=== PATIENT | male | born 1975 | race Caucasian/White ===

== ENCOUNTER 2018-03-17 18:26 | Inpatient (IN) | payer BC ==
--- NOTE | 2018-03-17 18:59 | ED ---
General Adult HPI - General Chief complaint: Abdominal Pain Stated complaint: Abdominal pain Time Seen by Provider: 03/17/18 18:46 Source: patient, EMS, RN notes reviewed Mode of arrival: EMS Limitations: no limitations - History of Present Illness Initial comments: Patient is a pleasant 42-year-old male presenting to the emergency Department with complaints of abdominal discomfort. Onset of symptoms was yesterday. Symptoms then improved last night. Discomfort started again this morning and is progressively worsened since that time. Patient admits that his abdomen does appear distended to them. Discomfort is mostly right lower abdomen. Patient did have some nausea earlier however this is resolved. No vomiting. patient diarrhea. No history of similar symptoms previously. Patient was seen at [facility] and transferred for surgical care. Computed tomography scan there showed significant inflammatory changes in the sigmoid:. 1.7 cm developing abscess suspected. Scattered locules of free air demonstrated compatible with perforation. Appendix is not visualized. - Related Data Home Medications Medication Instructions Recorded Confirmed Ibuprofen [Advil] 200 mg PO Q8HR PRN 03/17/18 03/17/18 Allergies Allergy/AdvReac Type Severity Reaction Status Date / Time No Known Allergies Allergy Verified 03/17/18 18:58 Review of Systems ROS Statement: Those systems with pertinent positive or pertinent negative responses have been documented in the HPI. ROS Other: All systems not noted in ROS Statement are negative. Constitutional: Reports: fever Eyes: Denies: eye pain ENT: Denies: ear pain Respiratory: Denies: cough, dyspnea Cardiovascular: Denies: chest pain Endocrine: Denies: fatigue Gastrointestinal: Reports: abdominal pain. Denies: vomiting, diarrhea, constipation Genitourinary: Denies: dysuria Musculoskeletal: Denies: back pain Skin: Denies: rash Neurological: Denies: weakness Past Medical History Past Medical History: No Reported History History of Any Multi-Drug Resistant Organisms: None Reported Additional Past Surgical History / Comment(s): Colonoscopy Past Psychological History: No Psychological Hx Reported Smoking Status: Current every day smoker Past Alcohol Use History: None Reported Past Drug Use History: None Reported General Exam Limitations: no limitations General appearance: alert, in no apparent distress Head exam: Present: atraumatic Eye exam: Present: normal appearance Neck exam: Present: normal inspection Respiratory exam: Present: normal lung sounds bilaterally Cardiovascular Exam: Present: regular rate, normal rhythm GI/Abdominal exam: Present: soft, distended, tenderness (Moderate to severe tenderness right lower quadrant and suprapubic region), guarding, normal bowel sounds. Absent: rebound, pulsatile mass Extremities exam: Present: normal inspection Neurological exam: Present: alert Psychiatric exam: Present: normal affect, normal mood Skin exam: Present: normal color Course Vital Signs 03/17/18 18:48 Temperature 99.4 F Pulse Rate 100 Respiratory 18 Rate Blood Pressure 132/62 O2 Sat by Pulse 95 Oximetry - Reevaluation(s) Reevaluation #1: 03/17/18 18:56 Patient met sepsis criteria prior to arrival. Patient appears to have received Rocephin and Flagyl prior to arrival as well as acetaminophen and fluid bolus. It does appear to be a 2000 mL of fluid bolus however this is not completely clear. Blood culture and lactic acid have been ordered. 03/17/18 19:10 Case was discussed in detail with Dr. Cobb, including CT results and patient evaluation, who does recommend admitting patient to him. He will review computed tomography scan and determine further treatment. He states to continue Rocephin and Flagyl. Disposition Clinical Impression: Perforated viscus Disposition: ADMITTED IP TO THIS HOSP Is patient prescribed a controlled substance at d/c from ED?: No Referrals: Anson Last DO [Primary Care Provider] - 1-2 days Decision Time: 19:11
[2018-03-17] MEDS ORDERED: SODIUM CHLORIDE 0.9% 500 ML IV STA (19:07)
[2018-03-17] MEDS ORDERED: NALOXONE 0.4 MG/ML 1 ML VIAL IV PRN (19:11)
[2018-03-17] MEDS ORDERED: PANTOPRAZOLE 40 MG/10 ML VIAL IV STA (19:23)
[2018-03-17 20:45] LABS: INR 1.1 (<1.2); Prothrombin Time 10.3 sec (9.0-12.0)
[2018-03-17 20:47] LABS: Basophils % (A) 0 %; Eosinophils # (A) 0.1 k/uL (0-0.7); Eosinophils % (A) 1 %; HGB 13.5 gm/dL (13.0-17.5); Lymphocytes # (A) 1.1 k/uL (1.0-4.8); Lymphocytes % (A) 8 %; MCH 29.2 pg (25.0-35.0); MCHC 32.1 g/dL (31.0-37.0); MCV 90.8 fL (80.0-100.0); Mean Platelet Volume 7.2; Monocytes # (A) 0.4 k/uL (0-1.0); Monocytes % (A) 3 %; Neutrophils # (A) 11.6 k/uL (1.3-7.7); Neutrophils % (A) 87 %; Platelet Count 293 k/uL (150-450); RBC 4.62 m/uL (4.30-5.90); RDW 12.6 % (11.5-15.5); WBC 13.3 k/uL (3.8-10.6)
[2018-03-17 20:51] LABS: ALT 29 U/L (21-72); AST 33 U/L (17-59); Albumin 3.3 g/dL (3.5-5.0); Alkaline Phosphatase 81 U/L (38-126); Anion Gap 9 mmol/L; Blood Urea Nitrogen 13 mg/dL (9-20); Carbon Dioxide 24 mmol/L (22-30); Chloride 106 mmol/L (98-107); Glucose 88 mg/dL (74-99); Potassium 4.5 mmol/L (3.5-5.1); Sodium 139 mmol/L (137-145); Total Bilirubin 0.8 mg/dL (0.2-1.3); Total Protein 6.3 g/dL (6.3-8.2)
[2018-03-17] MEDS: SODIUM CHLORIDE 0.9% 1,000 ML IV SCH (21:03)
--- NOTE | 2018-03-17 21:18 | P.GSHP ---
History of Present Illness H&P Date: 03/17/18 Mr. Sierra s a pleasant 42-year-old gentleman that presented from a outside facility for surgical evaluation. He states that he has had abdominal pain in the bilateral lower quadrants for approximately 1 week. He states that the pain would relieve itself throughout the week and then return. He states that over the past 24 hours the pain has increased and has not dissipated. He states that most of the pain is currently in the right lower quadrant and suprapubic region. He complains of some episodes of nausea and diarrhea. He denies any emesis episodes. He denies any loss of appetite. He is uncertain of any febrile episodes. He denies ever having any previous abdominal surgery. He states that he did have a colonoscopy approximately 6 or 7 years ago due to GI bleed. He states that nothing of significance was found at that time. On workup at the outside facility, CT of his abdomen and pelvis was performed. They did mention that there was localized air around the sigmoid colon with inflammation of the sigmoid colon which seemed to signify diverticulitis. There is also concern for a possible developing abscess. There is no apparent appendicitis, however appendix is not visualized on the CT. - Review of Systems All systems: negative Past Medical History Past Medical History: No Reported History History of Any Multi-Drug Resistant Organisms: None Reported Additional Past Surgical History / Comment(s): Colonoscopy Past Psychological History: No Psychological Hx Reported Smoking Status: Current every day smoker Past Alcohol Use History: None Reported Past Drug Use History: None Reported Medications and Allergies Home Medications Medication Instructions Recorded Confirmed Type Ibuprofen [Advil] 200 mg PO Q8HR PRN 03/17/18 03/17/18 History Allergies Allergy/AdvReac Type Severity Reaction Status Date / Time No Known Allergies Allergy Verified 03/17/18 18:58 Surgical - Exam Osteopathic Statement: *. No significant issues noted on an osteopathic structural exam other than those noted in the History and Physical/Consult. Vital Signs Temp Pulse Resp BP Pulse Ox 99.4 F 100 18 132/62 95 03/17/18 18:48 03/17/18 18:48 03/17/18 18:48 03/17/18 18:48 03/17/18 18:48 - General well nourished, no distress - Eyes normal ocular movement - ENT normal nares, normal mucosa, no hearing loss - Neck no masses, trachea midline - Respiratory no difficulty with respiration - Abdomen soft, mild distention, tenderness to palpation in the right lower quadrant localized to one area, nontender to percussion, no rebound, no guarding, no skin changes - Neurologic normal coordination, normal sensation - Psychiatric oriented to time, oriented to person, oriented to place, speech is normal Results - Labs 03/17/18 19:29 03/17/18 19:29 Abnormal Lab Results - Last 24 Hours (Table) 03/17/18 03/17/18 Range/Units 19:29 19:29 WBC 13.3 H (3.8-10.6) k/uL Neutrophils # 11.6 H (1.3-7.7) k/uL Calcium 8.0 L (8.4-10.2) mg/dL Albumin 3.3 L (3.5-5.0) g/dL Diabetes panel 03/17/18 Range/Units 19:29 Sodium 139 (137-145) mmol/L Potassium 4.5 (3.5-5.1) mmol/L Chloride 106 (98-107) mmol/L Carbon Dioxide 24 (22-30) mmol/L BUN 13 (9-20) mg/dL Creatinine 0.87 (0.66-1.25) mg/dL Glucose 88 (74-99) mg/dL Calcium 8.0 L (8.4-10.2) mg/dL AST 33 (17-59) U/L ALT 29 (21-72) U/L Alkaline Phosphatase 81 (38-126) U/L Total Protein 6.3 (6.3-8.2) g/dL Albumin 3.3 L (3.5-5.0) g/dL Calcium panel 03/17/18 Range/Units 19:29 Calcium 8.0 L (8.4-10.2) mg/dL Albumin 3.3 L (3.5-5.0) g/dL Pituitary panel 03/17/18 Range/Units 19:29 Sodium 139 (137-145) mmol/L Potassium 4.5 (3.5-5.1) mmol/L Chloride 106 (98-107) mmol/L Carbon Dioxide 24 (22-30) mmol/L BUN 13 (9-20) mg/dL Creatinine 0.87 (0.66-1.25) mg/dL Glucose 88 (74-99) mg/dL Calcium 8.0 L (8.4-10.2) mg/dL Adrenal panel 03/17/18 Range/Units 19:29 Sodium 139 (137-145) mmol/L Potassium 4.5 (3.5-5.1) mmol/L Chloride 106 (98-107) mmol/L Carbon Dioxide 24 (22-30) mmol/L BUN 13 (9-20) mg/dL Creatinine 0.87 (0.66-1.25) mg/dL Glucose 88 (74-99) mg/dL Calcium 8.0 L (8.4-10.2) mg/dL Total Bilirubin 0.8 (0.2-1.3) mg/dL AST 33 (17-59) U/L ALT 29 (21-72) U/L Alkaline Phosphatase 81 (38-126) U/L Total Protein 6.3 (6.3-8.2) g/dL Albumin 3.3 L (3.5-5.0) g/dL - Imaging CT scan - abdomen: report reviewed, image reviewed (There does appear to be inflammatory changes around the sigmoid colon with some localized minimal perforation) CT scan - pelvis: report reviewed, image reviewed Assessment and Plan (1) Diverticulitis large intestine Narrative/Plan: 42-year-old male with likely diverticulitis, with minimal localized perforation - I discussed the case in depth with the patient. Currently, the patient has responded to IV fluids and antibiotics with resolution of febrile episode that was documented at his previous hospital. Tachycardia has resolved. The patient does not currently have any peritoneal signs. This appears to be a process that has been ongoing for the last week and has worsened. I did discuss with the patient both medical and surgical options at this point. Due to no current signs of peritonitis, we will attempt care with medical management with antibiotics, nothing by mouth and IV fluids. We will keep a very low threshold for any surgical intervention if he continues to have pain or have worsening pain or any additional signs of sepsis. The patient is agreeable to this plan. I will also involve interventional radiology for evaluation on possible developing abscess. - Further recommendations based on patient's progress during admission Current Visit: Yes Status: Acute Code(s): K57.32 - DVTRCLI OF LG INT W/O PERFORATION OR ABSCESS W/O BLEEDING SNOMED Code(s): 5844320
[2018-03-18] MEDS ORDERED: metroNIDAZOLE-NS PMX 500 MG in SALINE 1 100ML.BAG IVPB SCH
[2018-03-18] MEDS: SODIUM CHLORIDE 0.9% 500 ML IV SCH (00:15)
[2018-03-18] MEDS: metroNIDAZOLE-NS PMX 500 MG in SALINE 1 100ML.BAG IVPB SCH ×3 (00:17→16:37)
[2018-03-18 00:52] LABS: Appearance,Urine Clear (Clear); Bilirubin,Urine Negative (Negative); Blood,Urine Trace (Negative); Color,Urine Yellow; Glucose,Urine (UA) Negative (Negative); Ketones,Urine Negative (Negative); Leukocyte Esterase,Urine Negative (Negative); Nitrite,Urine Negative (Negative); PH, Urine 6.5 (5.0-8.0); Protein,Urine Trace (Negative); RBC,Urine 5 /hpf (0-5); Specific Gravity,Urine 1.039 (1.001-1.035); Squamous Epithelial Cell,Urine <1 /hpf (0-4); WBC,Urine 1 /hpf (0-5)
[2018-03-18] MEDS: HYDROmorphone 1 MG/ML 1 ML SYRINGE IVP PRN ×3 (04:24→17:30)
[2018-03-18 07:35] LABS: Basophils % (A) 0 %; Eosinophils % (A) 0 %; HCT 40.1 % (39.0-53.0); HGB 12.6 gm/dL (13.0-17.5); Lymphocytes # (A) 1.2 k/uL (1.0-4.8); Lymphocytes % (A) 8 %; MCH 29.1 pg (25.0-35.0); MCHC 31.4 g/dL (31.0-37.0); MCV 92.6 fL (80.0-100.0); Mean Platelet Volume 6.7; Monocytes # (A) 0.4 k/uL (0-1.0); Monocytes % (A) 3 %; Neutrophils # (A) 13.5 k/uL (1.3-7.7); Neutrophils % (A) 89 %; Platelet Count 286 k/uL (150-450); RBC 4.33 m/uL (4.30-5.90); RDW 12.5 % (11.5-15.5); WBC 15.2 k/uL (3.8-10.6)
[2018-03-18 07:46] LABS: Anion Gap 7 mmol/L; Blood Urea Nitrogen 12 mg/dL (9-20); Calcium 8.2 mg/dL (8.4-10.2); Carbon Dioxide 26 mmol/L (22-30); Chloride 106 mmol/L (98-107); Glucose 91 mg/dL (74-99); Potassium 4.6 mmol/L (3.5-5.1); Sodium 139 mmol/L (137-145)
[2018-03-18] MEDS: PANTOPRAZOLE 40 MG/10 ML VIAL IV SCH (08:45)
--- NOTE | 2018-03-18 10:55 | P.PN ---
Subjective Progress Note Date: 03/18/18 Patient seen and examined at bedside. He states that he is feeling better today. Abdominal pain has improved. He is having multiple loose stools. He states he feels as if his abdomen is less distended. He denies any nausea or vomiting. Objective - Vital Signs Vital signs: Vital Signs Temp 99.6 F 03/18/18 07:00 Pulse 104 H 03/18/18 07:00 Resp 16 03/18/18 07:00 BP 106/73 03/18/18 07:00 Pulse Ox 89 L 03/18/18 07:00 Intake & Output 03/17/18 03/18/18 03/18/18 18:59 06:59 18:59 Intake Total 1100 Balance 1100 Weight 72.575 kg Intake: Intake, IV Titration 1100 Amount Sodium Chloride 0.9% 1, 1000 000 ml @ 125 mls/hr IV . Q8H MICHELLE Rx#:[id number] metroNIDAZOLE-NS PMX 500 100 mg In Saline 1 100ml.bag @ 100 mls/hr IVPB Q6HR MICHELLE Rx#:[id number] Other: # Voids 4 # Bowel Movements 1 - Constitutional General appearance: Present: cooperative, no acute distress - Respiratory Details: No difficulty with respiration - Gastrointestinal Gastrointestinal Comment(s): Soft, improved tenderness in right lower quadrant, nontender to percussion, no rebound, no guarding, improved distention - Psychiatric Psychiatric: Present: A&O x's 3 - Labs CBC & Chem 7: 03/18/18 07:00 03/18/18 07:00 Labs: Abnormal Lab Results - Last 24 Hours (Table) 03/17/18 03/17/18 03/18/18 Range/Units 19:29 19:29 00:05 WBC 13.3 H (3.8-10.6) k/uL Hgb (13.0-17.5) gm/dL Neutrophils # 11.6 H (1.3-7.7) k/uL Calcium 8.0 L (8.4-10.2) mg/dL Albumin 3.3 L (3.5-5.0) g/dL Ur Specific Gideon 1.039 H (1.001-1.035) Urine Protein Trace H (Negative) Urine Blood Trace H (Negative) 09/29/18 09/29/18 Range/Units 07:00 07:00 WBC 15.2 H (3.8-10.6) k/uL Hgb 12.6 L (13.0-17.5) gm/dL Neutrophils # 13.5 H (1.3-7.7) k/uL Calcium 8.2 L (8.4-10.2) mg/dL Albumin (3.5-5.0) g/dL Ur Specific Gideon (1.001-1.035) Urine Protein (Negative) Urine Blood (Negative) Microbiology - Last 24 Hours (Table) 03/18/18 00:05 Urine Culture - Preliminary Urine,Clean Catch Assessment and Plan (1) Diverticulitis large intestine Narrative/Plan: 42-year-old male with likely diverticulitis, with minimal localized perforation - Case was discussed with radiology and interventional radiology, Dr. Hall and Dr. Cazares. On evaluation, it appears as if there is thickening of the sigmoid colon into the descending colon that appears to be full wall thickness thickening. There is also concern of thickening at the terminal ileum and concern for inflammatory bowel disease. There is a notable small abscess within the pelvis. Interventional radiology recommendation is that due to small bowel loops within the vicinity, risks may outweigh any benefit to an IR drain at this time. Also due to the size of the abscess, antibiotics may be sufficient for resolution. Due to the patient having an improved physical exam with antibiotics, we will continue to observe and manage with antibiotics and medical management at this time. We will reevaluate with a CT of the abdomen and pelvis in the next 48 hours or depending on any worsening of symptomatology. Continue patient nothing by mouth. DVT prophylaxis. Incentive spirometry. I did encourage the patient to increase his activity and ambulate. Current Visit: Yes Status: Acute Code(s): K57.32 - DVTRCLI OF LG INT W/O PERFORATION OR ABSCESS W/O BLEEDING SNOMED Code(s): 3070127
[2018-03-18] MEDS: HEPARIN SODIUM,PORCINE 5,000 UNIT/ML 1 ML VIAL SQ SCH ×2 (14:34→16:42)
[2018-03-18] MEDS: SODIUM CHLORIDE 0.9% 1,000 ML IV SCH ×2 (16:37)
[2018-03-19] MEDS: HYDROmorphone 1 MG/ML 1 ML SYRINGE IVP PRN ×2 (00:06→09:52)
[2018-03-19] MEDS: HEPARIN SODIUM,PORCINE 5,000 UNIT/ML 1 ML VIAL SQ SCH ×3 (00:07→16:45)
[2018-03-19] MEDS: metroNIDAZOLE-NS PMX 500 MG in SALINE 1 100ML.BAG IVPB SCH ×3 (00:07→16:45)
[2018-03-19 07:19] LABS: Basophils % (A) 0 %; Eosinophils % (A) 0 %; HCT 38.9 % (39.0-53.0); HGB 12.2 gm/dL (13.0-17.5); Lymphocytes # (A) 0.7 k/uL (1.0-4.8); Lymphocytes % (A) 4 %; MCH 29.1 pg (25.0-35.0); MCHC 31.2 g/dL (31.0-37.0); MCV 93.1 fL (80.0-100.0); Monocytes # (A) 0.5 k/uL (0-1.0); Monocytes % (A) 3 %; Neutrophils # (A) 16.6 k/uL (1.3-7.7); Neutrophils % (A) 93 %; Platelet Count 312 k/uL (150-450); RBC 4.18 m/uL (4.30-5.90); RDW 12.5 % (11.5-15.5); WBC 17.8 k/uL (3.8-10.6)
[2018-03-19 07:43] LABS: Anion Gap 9 mmol/L; Blood Urea Nitrogen 17 mg/dL (9-20); Calcium 8.4 mg/dL (8.4-10.2); Carbon Dioxide 26 mmol/L (22-30); Chloride 107 mmol/L (98-107); Glucose 113 mg/dL (74-99); Potassium 4.7 mmol/L (3.5-5.1); Sodium 142 mmol/L (137-145)
[2018-03-19] MEDS: PANTOPRAZOLE 40 MG/10 ML VIAL IV SCH (08:02)
--- NOTE | 2018-03-19 08:44 | P.PN ---
Subjective Progress Note Date: 03/19/18 Patient seen and examined at bedside. He states his abdominal pain has improved and he no longer has pain. He does state he is distended and feeling nauseous. He denies any emesis episodes. He states that he has had for loose bowel movements yesterday. He states he is having hunger cramps occasionally. Objective - Vital Signs Vital signs: Vital Signs Temp 99.5 F 03/19/18 07:00 Pulse 92 03/19/18 07:00 Resp 16 03/19/18 07:00 BP 122/78 03/19/18 07:00 Pulse Ox 96 03/19/18 07:00 Intake & Output 03/18/18 03/19/18 03/19/18 18:59 06:59 18:59 Intake Total 1025 1200 Output Total 2 Balance 1025 1198 Intake: Intake, IV Titration 1025 1200 Amount Sodium Chloride 0.9% 1, 875 1050 000 ml @ 125 mls/hr IV . Q8H MICHELLE Rx#:[id number] cefTRIAXone 1,000 mg In 50 50 Sodium Chloride 0.9% 50 ml @ 100 mls/hr IVPB Q12HR MICHELLE Rx#:[id number] metroNIDAZOLE-NS PMX 500 100 100 mg In Saline 1 100ml.bag @ 100 mls/hr IVPB Q6HR MICHELLE Rx#:[id number] Oral 0 Output: Urine 2 Other: Voiding Method Toilet # Voids 1 2 - Constitutional General appearance: Present: cooperative, no acute distress - Respiratory Details: No difficulty with respiration - Gastrointestinal Gastrointestinal Comment(s): Soft, moderate distention increased from yesterday, nontender to percussion and to palpation, no rebound, no guarding - Psychiatric Psychiatric: Present: A&O x's 3, appropriate affect - Labs CBC & Chem 7: 03/19/18 06:17 03/19/18 06:17 Labs: Abnormal Lab Results - Last 24 Hours (Table) 03/19/18 03/19/18 Range/Units 06:17 06:17 WBC 17.8 H (3.8-10.6) k/uL RBC 4.18 L (4.30-5.90) m/uL Hgb 12.2 L (13.0-17.5) gm/dL Hct 38.9 L (39.0-53.0) % Neutrophils # 16.6 H (1.3-7.7) k/uL Lymphocytes # 0.7 L (1.0-4.8) k/uL Glucose 113 H (74-99) mg/dL Microbiology - Last 24 Hours (Table) 03/17/18 19:29 Blood Culture - Preliminary Blood No Growth after 24 hours 03/18/18 00:05 Urine Culture - Preliminary Urine,Clean Catch Assessment and Plan (1) Diverticulitis large intestine Narrative/Plan: 42-year-old male with likely diverticulitis, with minimal localized perforation - The patient's pain is much improved over the past 2 days on antibiotic regimen. Distention has increased and bowel sounds are hypoactive. The patient is likely developing an ileus secondary to intra-abdominal infection. This is an expected occurrence. We will place an NG tube today and patient will be allowed to begin some ice chips. - As per previous note, discussion with radiology was had. I did discuss this with the patient as well. We will plan for a CT of the abdomen and pelvis with IV and oral contrast tomorrow to evaluate progression of intra-abdominal abscess. Leukocytosis is increased to 17 today. We will continue antibiotics. - Continue to increase activity - DVT prophylaxis Current Visit: Yes Status: Acute Code(s): K57.32 - DVTRCLI OF LG INT W/O PERFORATION OR ABSCESS W/O BLEEDING SNOMED Code(s): 0094101
[2018-03-19] MEDS ORDERED: ACETAMINOPHEN IV (For NPO) 1,000 MG in EMPTY BAG 1 BAG IVPB ONE (09:19)
[2018-03-19] MEDS: SODIUM CHLORIDE 0.9% 1,000 ML IV SCH (10:47)
[2018-03-19] MEDS: SODIUM CHLORIDE 0.9% 500 ML IV SCH (10:48)
[2018-03-19] MEDS: ONDANSETRON 4 MG/2 ML VIAL IVP PRN ×2 (13:35→20:32)
[2018-03-20] MEDS: HEPARIN SODIUM,PORCINE 5,000 UNIT/ML 1 ML VIAL SQ SCH ×3 (00:16→16:42)
[2018-03-20] MEDS: metroNIDAZOLE-NS PMX 500 MG in SALINE 1 100ML.BAG IVPB SCH ×3 (00:16→15:42)
[2018-03-20] MEDS: ONDANSETRON 4 MG/2 ML VIAL IVP PRN ×2 (05:57→16:47)
[2018-03-20 07:51] LABS: Basophils % (A) 0 %; Eosinophils # (A) 0.1 k/uL (0-0.7); Eosinophils % (A) 1 %; HCT 38.5 % (39.0-53.0); HGB 12.3 gm/dL (13.0-17.5); Lymphocytes # (A) 0.9 k/uL (1.0-4.8); Lymphocytes % (A) 6 %; MCH 29.2 pg (25.0-35.0); MCV 91.2 fL (80.0-100.0); Mean Platelet Volume 7.6; Monocytes # (A) 0.4 k/uL (0-1.0); Monocytes % (A) 3 %; Neutrophils # (A) 12.9 k/uL (1.3-7.7); Neutrophils % (A) 90 %; Platelet Count 307 k/uL (150-450); RBC 4.22 m/uL (4.30-5.90); RDW 12.6 % (11.5-15.5); WBC 14.4 k/uL (3.8-10.6)
[2018-03-20 08:04] LABS: Anion Gap 7 mmol/L; Blood Urea Nitrogen 22 mg/dL (9-20); Calcium 7.9 mg/dL (8.4-10.2); Carbon Dioxide 25 mmol/L (22-30); Chloride 111 mmol/L (98-107); Glucose 90 mg/dL (74-99); Potassium 3.7 mmol/L (3.5-5.1); Sodium 143 mmol/L (137-145)
--- NOTE | 2018-03-20 09:14 | P.PN ---
Subjective Progress Note Date: 03/20/18 Patient seen and examined at bedside. Head NG tube placed yesterday secondary to abdominal distention and nausea. Immediately 400 mL of gastric fluid was decompressed. He states he immediately felt relief. He has had multiple liquid bowel movements over the past 24 hours. He states his abdominal distention is improving. Pain is controlled. He denies any nausea or vomiting episodes. Objective - Vital Signs Vital signs: Vital Signs Temp 98.3 F 03/20/18 08:00 Pulse 70 03/20/18 08:00 Resp 16 03/20/18 08:00 BP 111/73 03/20/18 08:00 Pulse Ox 93 L 03/20/18 08:00 Intake & Output 03/19/18 03/20/18 03/20/18 18:59 06:59 18:59 Intake Total 0 2000 Output Total 750 410 Balance -750 1590 Intake: Intake, IV Titration 2000 Amount Sodium Chloride 0.9% 1, 1850 000 ml @ 125 mls/hr IV . Q8H MICHELLE Rx#:[id number] cefTRIAXone 1,000 mg In 50 Sodium Chloride 0.9% 50 ml @ 100 mls/hr IVPB Q12HR MICHELLE Rx#:[id number] metroNIDAZOLE-NS PMX 500 100 mg In Saline 1 100ml.bag @ 100 mls/hr IVPB Q8HR MICHELLE Rx#:[id number] Oral 0 0 Output: Gastric Drainage 750 410 Other: Voiding Method Toilet Toilet Urinal Urinal # Voids 3 2 - Constitutional General appearance: Present: cooperative, no acute distress - Respiratory Details: No difficulty with respiration - Gastrointestinal Gastrointestinal Comment(s): Soft, improved distention, nontender to palpation or percussion, no rebound, no guarding - Musculoskeletal Musculoskeletal: Present: generalized weakness - Psychiatric Psychiatric: Present: A&O x's 3 - Labs CBC & Chem 7: 03/20/18 06:31 03/20/18 06:31 Labs: Abnormal Lab Results - Last 24 Hours (Table) 03/20/18 03/20/18 Range/Units 06:31 06:31 WBC 14.4 H (3.8-10.6) k/uL RBC 4.22 L (4.30-5.90) m/uL Hgb 12.3 L (13.0-17.5) gm/dL Hct 38.5 L (39.0-53.0) % Neutrophils # 12.9 H (1.3-7.7) k/uL Lymphocytes # 0.9 L (1.0-4.8) k/uL Chloride 111 H (98-107) mmol/L BUN 22 H (9-20) mg/dL Calcium 7.9 L (8.4-10.2) mg/dL Microbiology - Last 24 Hours (Table) 03/17/18 19:29 Blood Culture - Preliminary Blood No Growth after 48 hours 03/18/18 00:05 Urine Culture - Final Urine,Clean Catch Assessment and Plan (1) Diverticulitis large intestine Narrative/Plan: 42-year-old male with likely diverticulitis, with minimal localized perforation - Continue NG tube to low intermittent suction - As per previous note, plan for CT of the abdomen and pelvis with oral and IV contrast today. This will be done to evaluate progression of abscess and ability for possible IR drainage. - Continue antibiotics, leukocytosis has improved today. - Continue to increase activity - DVT prophylaxis Current Visit: Yes Status: Acute Code(s): K57.32 - DVTRCLI OF LG INT W/O PERFORATION OR ABSCESS W/O BLEEDING SNOMED Code(s): 3875690
[2018-03-20] MEDS: IOPAMIDOL-300 CONTRAST 30 ML VIAL (ORAL USE) PO PRN ×2 (09:22→10:43)
[2018-03-20] MEDS: NICOTINE 21MG/24HR PATCH TRANSDERM SCH ×2 (09:22→09:25)
[2018-03-20] MEDS: SODIUM CHLORIDE 0.9% 1,000 ML IV SCH ×3 (09:24→21:25)
[2018-03-20] MEDS: PANTOPRAZOLE 40 MG/10 ML VIAL IV SCH (09:24)
[2018-03-20] MEDS ORDERED: ONDANSETRON 4 MG/2 ML VIAL IVP STA (09:36)
[2018-03-20] MEDS: HYDROmorphone 1 MG/ML 1 ML SYRINGE IVP PRN ×2 (12:53→21:22)
--- NOTE | 2018-03-20 13:35 | CT ---
EXAMINATION TYPE: CT abdomen pelvis w con DATE OF EXAM: 03/20/2018 COMPARISON: CT from outside institution 03/17/2018 HISTORY: evaluate intra-abdominal abscess CT DLP: 865.8 mGycm Automated exposure control for dose reduction was used. TECHNIQUE: Helical acquisition of images from the lung bases through the pelvis have been completed. CONTRAST: Performed with Oral Contrast and with IV Contrast, patient injected with 100 mL of Isovue 300. FINDINGS: LUNG BASES: Interval development of small pleural effusions and associated atelectasis. NG tube is pr esent with distal tip at the gastroesophageal junction level. AORTA: No significant abnormality is appreciated. LIVER/GB: No significant abnormality is appreciated. PANCREAS: No significant abnormality is seen. SPLEEN: No significant abnormality is seen. ADRENALS: No significant abnormality is seen. KIDNEYS: No significant abnormality is seen. REPRODUCTIVE ORGANS: No significant abnormality is seen BOWEL: Abscess noted on previous exam at the level of the sigmoid colon is again seen. There are poc kets of fluid with some associated air do not appear luminal, axial images 57 through 48 as well as a xial image 45 in the midline. Fluid is present within the pelvis and mesenteric fat. There is inflamm atory change present. Distended loops of small bowel are present, contrast has not coursed distally. FREE AIR: No Free Air visible. ASCITES: None visible. PELVIC ADENOPATHY: None visualized. RETROPERITONEAL ADENOPATHY: No Retroperitoneal Adenopathy visible. URINARY BLADDER: No significant abnormality is seen. OSSEOUS STRUCTURES: No significant abnormality is seen. IMPRESSION: EXTRALUMINAL AREAS OF FLUID AND ASSOCIATED AIR SUGGEST POSSIBLE PERFORATION, SUSPICIOUS APPEARANCE NO JON IN THE MIDLINE ANTERIOR TO THE AORTIC BIFURCATION, SMALL BOWEL PERFORATION NOT EXCLUDED. ABSCESS ADJACENT TO THE SIGMOID COLON POSSIBLY WITHIN THE WALL IS AGAIN NOTED. CORRELATE FOR PERITONITIS, SUKI FERNANDO DISCUSSED WITH DR. WU AT THE TIME OF INTERPRETATION. ADDITIONAL FINDINGS ABOVE.
[2018-03-20 14:12] VITALS: BMI 25.0
[2018-03-20 20:44] VITALS: RESP 16
[2018-03-21] MEDS: HEPARIN SODIUM,PORCINE 5,000 UNIT/ML 1 ML VIAL SQ SCH ×2 (00:43→08:03)
[2018-03-21] MEDS: HYDROmorphone 1 MG/ML 1 ML SYRINGE IVP PRN ×2 (00:55→10:30)
[2018-03-21] MEDS: metroNIDAZOLE-NS PMX 500 MG in SALINE 1 100ML.BAG IVPB SCH ×2 (01:32→08:03)
[2018-03-21] MEDS: SODIUM CHLORIDE 0.9% 1,000 ML IV SCH ×2 (05:19→09:26)
[2018-03-21 07:34] VITALS: BP 113/74; PULSE 80; TEMP 99.1
[2018-03-21 07:51] LABS: Basophils % (A) 0 %; Eosinophils # (A) 0.1 k/uL (0-0.7); Eosinophils % (A) 1 %; HCT 39.6 % (39.0-53.0); HGB 12.6 gm/dL (13.0-17.5); Lymphocytes # (A) 1.5 k/uL (1.0-4.8); Lymphocytes % (A) 9 %; MCH 29.1 pg (25.0-35.0); MCHC 31.8 g/dL (31.0-37.0); MCV 91.5 fL (80.0-100.0); Mean Platelet Volume 7.4; Monocytes # (A) 0.6 k/uL (0-1.0); Monocytes % (A) 4 %; Neutrophils % (A) 85 %; Platelet Count 351 k/uL (150-450); RBC 4.33 m/uL (4.30-5.90); RDW 12.9 % (11.5-15.5); WBC 16.5 k/uL (3.8-10.6)
[2018-03-21 07:53] LABS: Anion Gap 7 mmol/L; Blood Urea Nitrogen 21 mg/dL (9-20); Calcium 7.6 mg/dL (8.4-10.2); Carbon Dioxide 28 mmol/L (22-30); Chloride 110 mmol/L (98-107); Glucose 80 mg/dL (74-99); Potassium 3.9 mmol/L (3.5-5.1); Sodium 145 mmol/L (137-145)
[2018-03-21] MEDS: PANTOPRAZOLE 40 MG/10 ML VIAL IV SCH (08:02)
[2018-03-21] MEDS: NICOTINE 21MG/24HR PATCH TRANSDERM SCH (08:03)
--- NOTE | 2018-03-21 10:24 | P.DS ---
Providers Date of admission: 03/17/18 19:12 Attending physician: Get Cobb DO Primary care physician: Anson Last - Discharge Diagnosis(es) (1) Diverticulitis large intestine Current Visit: Yes Status: Acute Hospital Course: 42-year-old male presented from outside facility due to possible diverticulitis and abscess formation. On initial presentation, the patient did have some tenderness in the right lower quadrant and suprapubic region. Decision was made to treat the patient with antibiotics due to abscess formation. The patient's abdominal pain did improve during his admission. Discussion was had with radiology and possible interventional radiology drainage of the abscess. It was decided to treat with antibiotics for a few days with plan to perform a repeat CT of the abdomen and pelvis to reevaluate for progression of the abscess and possible IR drainage. The patient continued to do well over these few days and improved with antibiotics. He did develop an ileus secondary to the diverticulitis and abscess formation that would be expected. This was treated with nasogastric decompression. On repeat imaging, there is concern of additional small bowel involvement and suspicion of possible inflammatory bowel disease due to multiple locations of abscess formation. Due to this reason, it is decided for the patient to be evaluated tertiary care center for decision between surgery or interventional radiology. Discussion was had with outside facility and transfer was accepted. Pertinent Studies: CT of the abdomen and pelvis was performed Patient Condition at Discharge: Fair Plan - Discharge Summary Discharge Rx Participant: No New Discharge Prescriptions: No Action Ibuprofen [Advil] 200 mg PO Q8HR PRN PRN Reason: Pain Or Fever > 100.5 Discharge Medication List Ibuprofen [Advil] 200 mg PO Q8HR PRN 03/17/18 [History] Follow up Appointment(s)/Referral(s): Anson Last DO [Primary Care Provider] - 1-2 days Discharge Disposition: DC/TRNS INTERMEDIATE CARE FAC
--- NOTE | 2018-03-21 10:47 | CDI ---
Last Revision, May 2017 Documentation Clarification Form Date: 03/21/2018 10:22:10 AM From: Tere Wills RN, CCDS Admit Date: 03/17/2018 7:12:00 PM Patient Name: Toni Sierra Visit Number: [id number] Discharge Date: ATTENTION: The Clinical Documentation Specialists (CDI) and [facility] Coding Staff appreciate your assistance in clarifying documentation. Please respond to the clarification below the line at the bottom and electronically sign. The CDI & [facility] Coding staff will review the response and follow-up if needed. Please note: Queries are made part of the Legal Health Record. If you have any questions, please contact the author of this message via ITS. Get Leigh, DO Emergency Department evaluation has documentation of sepsis criteria prior to arrival. Clinical impression is a perforated viscus. Treatment prior to arrival to hospital included Rocephin, and Flagyl, acetaminophen and fluid bolus. Your progress notes on 03/17/18: We will keep a very low threshold for any surgical intervention if he continues to have pain or have worsening pain or any additional signs of sepsis. History/Risk Factors: No reported history Clinical Indicators: Transfer with complaints of abdominal discomfort and distention. Patient did have some nausea and diarrhea WBC/Left Shift 13.3, 15.2, 17.8, 14.4, 16.5 Lactic acid: 1.0 Blood cultures: negative to date Vitals signs on admission: 132/62 100 18 99.4 Other Clinical Indicators: CT scan showed significant inflammatory changes in the sigmoid colon, developing abscess suspected, scattered locles of free air demonstrated compatible with perforation. Treatment: Rocephin IV Flagyl IV IV Fluids Monitor Labs NGT LIS/NPO Pain Management IV Bolus: In your professional opinion, please clarify if these findings signify one of the following conditions, whether the condition is POA, and cause, if known: Condition Sepsis ruled out Present on Admission: Yes SIRS Criteria..2 or more of the following may indicate SIRS: Temperature < 96.8F (36C) or > 101.0F (38.3C) Heart Rate > 90 bpm Respiratory Rate > 20 breaths/min or PaCO2 < 32 mmHg White Blood Cell Count > 12,000 or < 4,000 cells/mm3 or > 10% bands Lactate >2.0 mmol/L (>4.0 is equivalent to septic shock) Please continue to document in your progress notes and discharge summary in order to capture severity of illness and risk of mortality. Include clinical findings that support your diagnosis. due to findings of being afebrile and overall controlled heart rate, sepsis was ruled out. MTDD
== END 2018-03-21 10:30 | disposition short-term general hospital (02) | DRG 392 ==
LOC: EC 18:26 → 3SUR 19:12
PROVIDERS: ADMIT Surgery; ATTEND Surgery
DX: K57.32 Diverticulitis of large intestine without perforation or abscess without bleeding (principal); K56.7 Ileus, unspecified; D72.829 Elevated white blood cell count, unspecified; F17.200 Nicotine dependence, unspecified, uncomplicated
CPT/HCPCS: 36415; 74177; 80048; 80053; 81001; 83605; 85025; 85610; 85730; 87040; 87086; 87324; 93005; 96361; 96374; 99285

== ENCOUNTER 2019-10-10 23:07 | Inpatient (IN) | payer BC, OTHER ==
[2019-10-10] MEDS ORDERED: SODIUM CHLORIDE 0.9% 1,000 ML IV STA (23:37)
[2019-10-11] MEDS ORDERED: ONDANSETRON 4 MG/2 ML VIAL IVP PRN (00:04)
[2019-10-11] MEDS ORDERED: NALOXONE 0.4 MG/ML 1 ML VIAL IV PRN (00:04)
--- NOTE | 2019-10-11 00:15 | ED ---
Abdominal Pain HPI - General Chief Complaint: Abdominal Pain Stated Complaint: hernia Time Seen by Provider: 10/10/19 23:17 Source: patient, EMS Mode of arrival: EMS Limitations: no limitations - History of Present Illness Initial Comments: This patient is a 44-year-old man who presents here as a transfer from [facility], where he had gone this evening to be evaluated for left-sided abdominal pain. The patient's surgical history notable for having had left- sided colostomy due to what sounds like perforated diverticulitis. He had a takedown of the colostomy performed in July 2018. The patient did not recall the surgeon's name but believes the surgery was at [facility]. The patient had been transferred there after being admitted here by Dr. Cobb for abdominal pain. The patient's current pain started at 4 PM, when he bent over to move a stick from the deck of his riding lawnmower. The patient went to [facility] around 8 PM, where he had computed tomography scan that showed incarcerated incisional hernia with some tourniquet effect of the bowel. The patient states that his pain has largely been relieved by the medication that was given prior to transfer from the other hospital. He is denying nausea and vomiting currently. MD Complaint: abdominal pain Onset/Timin -: hour(s) Location: LLQ Radiation: none Migration to: no migration Severity: severe Quality: aching Consistency: constant Improves With: medication Worsens With: nothing Associated Symptoms: constipation - Related Data Home Medications Medication Instructions Recorded Confirmed Ibuprofen [Advil] 200 mg PO Q8HR PRN 03/17/18 03/17/18 Allergies Allergy/AdvReac Type Severity Reaction Status Date / Time No Known Allergies Allergy Verified 10/10/19 23:15 Review of Systems ROS Statement: Those systems with pertinent positive or pertinent negative responses have been documented in the HPI. ROS Other: All systems not noted in ROS Statement are negative. Constitutional: Denies: fever, chills Respiratory: Denies: cough, dyspnea Cardiovascular: Denies: chest pain Gastrointestinal: Reports: as per HPI, abdominal pain, constipation. Denies: nausea, vomiting, diarrhea Genitourinary: Denies: dysuria, hematuria, testicular pain, testicular mass Musculoskeletal: Denies: back pain Skin: Denies: rash Neurological: Denies: headache, weakness Hematological/Lymphatic: Denies: easy bleeding Past Medical History Past Medical History: No Reported History History of Any Multi-Drug Resistant Organisms: None Reported Additional Past Surgical History / Comment(s): Colonoscopy, colostomy reversal 2019. Past Psychological History: No Psychological Hx Reported Smoking Status: Current every day smoker Past Alcohol Use History: Occasional Past Drug Use History: None Reported General Exam Limitations: no limitations General appearance: alert, in no apparent distress Head exam: Present: atraumatic, normocephalic Eye exam: Present: normal appearance. Absent: scleral icterus, conjunctival injection ENT exam: Present: normal oropharynx Respiratory exam: Present: normal lung sounds bilaterally. Absent: respiratory distress, wheezes, rales, rhonchi, stridor Cardiovascular Exam: Present: regular rate, normal rhythm, normal heart sounds. Absent: systolic murmur, diastolic murmur, rubs, gallop GI/Abdominal exam: Present: tenderness, guarding. Absent: distended, rebound, rigid, mass, pulsatile mass, hernia Extremities exam: Present: normal inspection, normal capillary refill. Absent: pedal edema, calf tenderness Back exam: Present: normal inspection. Absent: CVA tenderness (R), CVA tenderness (L) Neurological exam: Present: alert Skin exam: Present: warm, dry, intact, normal color. Absent: rash Course Vital Signs 10/10/19 23:12 Temperature 98.3 F Pulse Rate 91 Respiratory 16 Rate Blood Pressure 118/71 O2 Sat by Pulse 98 Oximetry Medical Decision Making - Medical Decision Making This patient's 44-year-old man with incarcerated hernia. I reviewed the patient's transfer paperwork, and discussed the case with Dr. Sandoval, surgery on-call who did request that we first speak with Dr. Cobb, given that he had initially admitted the patient for the episode of perforated diverticulitis, heart is for surgery. I discussed the case including all of the findings with Dr. Pittman, on-call with Dr. Cobb who will admit the patient. Disposition Clinical Impression: Incarcerated incisional hernia Disposition: ADMITTED IP TO THIS [facility] Condition: Serious Referrals: Anson Last, DO [Primary Care Provider] - 1-2 days
[2019-10-11] MEDS: MORPHINE SULFATE 4 MG/ML SYRINGE IV PRN ×2 (01:46→12:40)
[2019-10-11] MEDS: SODIUM CHLORIDE 0.9% 1,000 ML IV SCH ×4 (01:48→23:02)
[2019-10-11] MEDS: PANTOPRAZOLE 40 MG/10 ML VIAL IV SCH (08:41)
--- NOTE | 2019-10-11 10:03 | P.GSHP ---
History of Present Illness H&P Date: 10/11/19 The patient is a 44-year-old man who was doing yard work yesterday. He developed sudden pain at a previous colostomy site. He went into the hospital at [place] and a CT showed an incarcerated hernia. He has some incisional pain in the left lower quadrant. No nausea or vomiting. No fevers or chills. - Review of Systems All systems: negative Past Medical History Past Medical History: No Reported History History of Any Multi-Drug Resistant Organisms: None Reported Additional Past Surgical History / Comment(s): Colonoscopy, colostomy with reversal 2018. Past Anesthesia/Blood Transfusion Reactions: No Reported Reaction Past Psychological History: No Psychological Hx Reported Smoking Status: Current every day smoker Past Alcohol Use History: Occasional Additional Past Alcohol Use History / Comment(s): patient reports smoking 1/2 ppd Past Drug Use History: None Reported - Past Family History Father Family Medical History: No Reported History Medications and Allergies Home Medications Medication Instructions Recorded Confirmed Type No Known Home Medications 10/11/19 10/11/19 History Allergies Allergy/AdvReac Type Severity Reaction Status Date / Time No Known Allergies Allergy Verified 10/11/19 08:19 Surgical - Exam Osteopathic Statement: *. No significant issues noted on an osteopathic structural exam other than those noted in the History and Physical/Consult. Vital Signs Temp Pulse Resp BP Pulse Ox 98.3 F 91 16 118/71 98 10/10/19 23:12 10/10/19 23:12 10/10/19 23:12 10/10/19 23:12 10/10/19 23:12 - General well developed, well nourished, no distress - Eyes normal ocular movement - Neck trachea midline - Respiratory normal expansion, clear to auscultation - Abdomen Abdomen: soft, tender (Left lower quadrant), masses (At the site of his colostomy), no rebound, no distended Assessment and Plan (1) Incarcerated incisional hernia Current Visit: Yes Status: Acute Code(s): K43.0 - INCISIONAL HERNIA WITH OBSTRUCTION, WITHOUT GANGRENE SNOMED Code(s): 672373758 Plan: The patient will be taken to the OR for a ventral incisional hernia repair with reduction of small bowel contents. It would be unlikely he would need to have a bowel resection. The procedure, risk, complications and usual postoperative course were discussed with him. Questions were encouraged and answered. If it is a straightforward herniorrhaphy he will be able to be discharged later today if he tolerates a diet.
[2019-10-11] MEDS ORDERED: LACTATED RINGERS 1,000 ML IV ONE ×2 (14:04→15:57)
[2019-10-11] MEDS ORDERED: LIDOCAINE 1% INJ 10MG/ML (20 ML MDV) ONE (14:30)
[2019-10-11] MEDS ORDERED: MIDAZOLAM 2 MG/2 ML VIAL ONE (14:30)
[2019-10-11] MEDS ORDERED: ALFENTANIL 500 MCG/ML 2 ML AMP IV ONE (14:30)
[2019-10-11] MEDS ORDERED: PROPOFOL 10 MG/ML 20 ML VIAL IV ONE (14:30)
[2019-10-11] MEDS ORDERED: NEOSTIGMINE 1 MG/ML 10 ML VIAL ONE (14:30)
[2019-10-11] MEDS ORDERED: SUCCINYLCHOLINE CHLORIDE 100 MG/5 ML SYR IV ONE (14:30)
[2019-10-11] MEDS ORDERED: ROCURONIUM BROMIDE 10 MG/ML 5 ML VIAL IV ONE (14:30)
[2019-10-11] MEDS ORDERED: KETOROLAC 30 MG/ML 1 ML VIAL ONE (14:30)
[2019-10-11] MEDS ORDERED: HYDROmorphone (PF) 1 MG/ML ONE (14:30)
[2019-10-11] MEDS ORDERED: BUPIVACAIN-EPI 0.25%-1:200,000 30 ML VIAL SQ ONE ×3 (14:40→14:53)
--- NOTE | 2019-10-11 16:42 | P.OP ---
Date of Procedure: 10/11/19 Preoperative Diagnosis: Incarcerated ventral incisional hernia Postoperative Diagnosis: Incarcerated ventral incisional hernia Procedure(s) Performed: Ventral incisional herniorrhaphy with mesh Anesthesia: SHASHANK Surgeon: Jacquelyn Pittman Estimated Blood Loss (ml): 50 Pathology: none sent Condition: stable Disposition: PACU Indications for Procedure: Patient presented with a incarcerated ventral incisional hernia Description of Procedure: The patient's taken the operative suite where he is prepped and draped in the usual sterile manner under general endotracheal anesthetic. The old scar is sharply excised. Dissection was then carried down to the hernia sac. Small bleeding points are controlled with electrocautery. The hernia sac was entered and there was some serosanguineous fluid present. The hernia sac and fascia were then sharply debrided to healthy edges. There was some inflammation of the underlying small intestine. It was examined and there was some slight edema but it appeared grossly viable. An 11 x 14 mesh was then placed into the peritoneal cavity. It was secured around the periphery using 0 PDS. The fascia was then closed in the midline taking bites of the mesh to secure it in place. The subcutaneous tissues were closed with 3-0 Vicryl. The skin was closed with yanci. A sterile dressing was applied. He tolerated the procedure without difficulty and is taken recovery room in satisfactory condition. According to or personnel, WERE correct. We'll monitor him overnight and he should be able to be discharged tomorrow.
[2019-10-11] MEDS ORDERED: HYDROcodone/APAP 5-325MG 1 EACH TAB PO PRN ×2 (16:43)
[2019-10-11] MEDS: KETOROLAC 30 MG/ML 1 ML VIAL IVP SCH ×2 (17:21→22:56)
[2019-10-12] MEDS: KETOROLAC 30 MG/ML 1 ML VIAL IVP SCH ×4 (04:38→23:23)
[2019-10-12] MEDS: PANTOPRAZOLE 40 MG/10 ML VIAL IV SCH (08:26)
[2019-10-12] MEDS: SODIUM CHLORIDE 0.9% 1,000 ML IV SCH ×3 (08:27→21:33)
--- NOTE | 2019-10-12 11:38 | P.PN ---
Subjective Progress Note Date: 10/12/19 Principal diagnosis: Status post ventral incisional herniorrhaphy The patient's postop day 1 repair of ventral incisional hernia. He's complaining of some expected incisional pain. Complaining of bloating. No flatus. No nausea or vomiting. He has been up in the room and walking Objective - Vital Signs Vital signs: Vital Signs Temp 98.2 F 10/12/19 11:05 Pulse 100 10/12/19 11:05 Resp 18 10/12/19 11:05 BP 116/79 10/12/19 11:05 Pulse Ox 94 L 10/12/19 11:05 Intake & Output 10/11/19 10/12/19 10/12/19 18:59 06:59 18:59 Intake Total 2250 2750 Output Total 25 Balance 2225 2750 Intake: IV 1250 Intake, IV Titration 1000 1550 Amount Sodium Chloride 0.9% 1, 1000 1500 000 ml @ 125 mls/hr IV . Q8H MICHELLE Rx#:[id number] ceFAZolin 2 gm In Sodium 50 Chloride 0.9% 50 ml @ 100 mls/hr IVPB Q8HR MICHELLE Rx# :[id number] Oral 0 1200 Output: Estimated Blood Loss 25 Other: Voiding Method Toilet Toilet # Voids 3 2 - Constitutional General appearance: Present: cooperative, no acute distress - Respiratory Respiratory: bilateral: CTA, diminished (Mildly at the bases) - Cardiovascular Rhythm: regular - Gastrointestinal General gastrointestinal: Present: distended, normal bowel sounds Localized gastrointestinal: surgical scar: diffuse (Dressing is intact clean and dry) Assessment and Plan (1) Incarcerated incisional hernia Current Visit: Yes Status: Acute Code(s): K43.0 - INCISIONAL HERNIA WITH OBSTRUCTION, WITHOUT GANGRENE SNOMED Code(s): 560487013 Plan: Patient's postoperative day 1. He likely has a ileus due to the edema of the small bowel which was incarcerated. We'll continue IV hydration. Make him nothing by mouth until the distention begins improving and he starts passing flatus. Pain control with Toradol and IV narcotics as needed. Progressing slowly. We'll likely take 2-3 days for the ileus to resolve.
[2019-10-12] MEDS: HYDROmorphone 0.5 MG/0.5 ML SYRINGE IVP PRN ×2 (11:40→21:31)
[2019-10-12 12:52] LABS: African American GFR (CKD) >90 (>60 ml/min/1.73 sqM); Anion Gap 6 mmol/L; Blood Urea Nitrogen 15 mg/dL (9-20); Calcium 7.9 mg/dL (8.4-10.2); Carbon Dioxide 26 mmol/L (22-30); Chloride 101 mmol/L (98-107); Glucose 112 mg/dL (74-99); Non-African American GFR(CKD) >90 (>60 ml/min/1.73 sqM); Potassium 4.5 mmol/L (3.5-5.1); Sodium 133 mmol/L (137-145)
[2019-10-12 13:01] LABS: Basophils % (A) 0 %; Eosinophils % (A) 0 %; HCT 46.4 % (39.0-53.0); HGB 15.1 gm/dL (13.0-17.5); Lymphocytes # (A) 0.5 k/uL (1.0-4.8); Lymphocytes % (A) 3 %; MCH 31.3 pg (25.0-35.0); MCHC 32.5 g/dL (31.0-37.0); MCV 96.2 fL (80.0-100.0); Mean Platelet Volume 7.8; Monocytes # (A) 0.4 k/uL (0-1.0); Monocytes % (A) 2 %; Neutrophils % (A) 95 %; Platelet Count 217 k/uL (150-450); RBC 4.83 m/uL (4.30-5.90); RDW 12.1 % (11.5-15.5); WBC 20.1 k/uL (3.8-10.6)
[2019-10-13] MEDS: KETOROLAC 30 MG/ML 1 ML VIAL IVP SCH ×2 (04:31→11:22)
[2019-10-13] MEDS: HYDROmorphone 0.5 MG/0.5 ML SYRINGE IVP PRN (05:31)
[2019-10-13 06:13] LABS: Basophils % (A) 0 %; Eosinophils % (A) 0 %; HCT 40.7 % (39.0-53.0); Lymphocytes # (A) 0.9 k/uL (1.0-4.8); Lymphocytes % (A) 5 %; MCV 96.9 fL (80.0-100.0); Mean Platelet Volume 8.4; Monocytes # (A) 0.5 k/uL (0-1.0); Monocytes % (A) 3 %; Neutrophils # (A) 15.8 k/uL (1.3-7.7); Neutrophils % (A) 91 %; Platelet Count 229 k/uL (150-450); RDW 12.1 % (11.5-15.5); WBC 17.4 k/uL (3.8-10.6)
[2019-10-13 06:26] LABS: African American GFR (CKD) >90 (>60 ml/min/1.73 sqM); Anion Gap 7 mmol/L; Blood Urea Nitrogen 16 mg/dL (9-20); Calcium 7.8 mg/dL (8.4-10.2); Carbon Dioxide 26 mmol/L (22-30); Chloride 102 mmol/L (98-107); Glucose 97 mg/dL (74-99); Non-African American GFR(CKD) >90 (>60 ml/min/1.73 sqM); Potassium 4.3 mmol/L (3.5-5.1); Sodium 135 mmol/L (137-145)
[2019-10-13] MEDS: PANTOPRAZOLE 40 MG/10 ML VIAL IV SCH (08:18)
[2019-10-13] MEDS: SODIUM CHLORIDE 0.9% 1,000 ML IV SCH ×2 (08:18→16:15)
--- NOTE | 2019-10-13 11:21 | P.PN ---
Subjective Progress Note Date: 10/13/19 Principal diagnosis: Status post ventral incisional herniorrhaphy The patient is feeling better today. he has begun to pass large amount of flatus. Still has incisional pain. No nausea or vomiting. Still feels somewhat distended Objective - Vital Signs Vital signs: Vital Signs Temp 97.3 F L 10/13/19 04:14 Pulse 94 10/13/19 04:14 Resp 26 H 10/13/19 05:32 BP 123/76 10/13/19 04:14 Pulse Ox 94 L 10/13/19 04:14 Intake & Output 10/12/19 10/13/19 10/13/19 18:59 06:59 18:59 Intake Total 900 2100 Balance 900 2100 Intake: Intake, IV Titration 900 1500 Amount Sodium Chloride 0.9% 1, 900 1500 000 ml @ 125 mls/hr IV . Q8H [facility] Rx#:[id number] Oral 600 Other: Voiding Method Toilet Toilet Toilet # Voids 4 3 - Constitutional General appearance: Present: cooperative, no acute distress - Respiratory Respiratory: bilateral: CTA, diminished (At the bases) - Cardiovascular Rhythm: regular - Gastrointestinal General gastrointestinal: Present: decreased bowel sounds, distended (Softly distended) Localized gastrointestinal: surgical scar: diffuse (Dressings intact clean and dry) - Labs CBC & Chem 7: 10/13/19 05:44 10/13/19 05:44 Labs: Abnormal Lab Results - Last 24 Hours (Table) 10/12/19 10/12/19 10/13/19 Range/Units 12:24 12:24 05:44 WBC 20.1 H 17.4 H (3.8-10.6) k/uL RBC 4.20 L (4.30-5.90) m/uL Neutrophils # 19.0 H 15.8 H (1.3-7.7) k/uL Lymphocytes # 0.5 L 0.9 L (1.0-4.8) k/uL Sodium 133 L (137-145) mmol/L Glucose 112 H (74-99) mg/dL Calcium 7.9 L (8.4-10.2) mg/dL 10/13/19 Range/Units 05:44 WBC (3.8-10.6) k/uL RBC (4.30-5.90) m/uL Neutrophils # (1.3-7.7) k/uL Lymphocytes # (1.0-4.8) k/uL Sodium 135 L (137-145) mmol/L Glucose (74-99) mg/dL Calcium 7.8 L (8.4-10.2) mg/dL Assessment and Plan (1) Incarcerated incisional hernia Current Visit: Yes Status: Acute Code(s): K43.0 - INCISIONAL HERNIA WITH OBSTRUCTION, WITHOUT GANGRENE SNOMED Code(s): 960344392 Plan: The ileus appears to be beginning to resolve. He is not hungry but is not having nausea. We'll start a clear liquid diet. If he is able to tolerate that it'll be advanced as tolerated. Encourage incentive spirometry. Encouraged ambulation. Progressing slowly.
[2019-10-13] MEDS: MORPHINE SULFATE 4 MG/ML SYRINGE IV PRN ×2 (17:04→21:49)
[2019-10-13 21:46] VITALS: RESP 28
[2019-10-14] MEDS: SODIUM CHLORIDE 0.9% 1,000 ML IV SCH ×2 (00:10→08:26)
[2019-10-14 05:16] VITALS: BP 120/74; PULSE 102; TEMP 98.2
[2019-10-14 06:49] LABS: HCT 36.1 % (39.0-53.0); HGB 12.2 gm/dL (13.0-17.5); MCH 31.2 pg (25.0-35.0); MCHC 33.8 g/dL (31.0-37.0); MCV 92.4 fL (80.0-100.0); Mean Platelet Volume 7.8; Platelet Count 238 k/uL (150-450); RBC 3.91 m/uL (4.30-5.90); RDW 12.3 % (11.5-15.5); WBC 14.6 k/uL (3.8-10.6)
[2019-10-14] MEDS: PANTOPRAZOLE 40 MG/10 ML VIAL IV SCH (08:26)
--- NOTE | 2019-10-14 09:52 | P.DS ---
Providers Date of admission: 10/11/19 00:08 Expected date of discharge: 10/14/19 Attending physician: Jacquelyn Pittman Primary care physician: Anson Last - Discharge Diagnosis(es) (1) Incarcerated incisional hernia Current Visit: Yes Status: Acute Hospital Course: The patient presented from [facility] with acute onset of abdominal pain and CT showing an incarcerated hernia. He is taken the OR where he underwent a hernia repair. There was some edema of the small bowel which caused a short- term ileus. By 10-13 he was tolerating a diet, having bowel movements, good pain control. His foot be stable for discharge Patient Condition at Discharge: Good Plan - Discharge Summary Discharge Rx Participant: No New Discharge Prescriptions: New HYDROcodone/APAP 5-325MG [[place] 5-325] 1 - 2 tab PO Q4H PRN #30 tab PRN Reason: Pain Discharge Medication List HYDROcodone/APAP 5-325MG [[place] 5-325] 1 - 2 tab PO Q4H PRN #30 tab 10/14/19 [Rx] Follow up Appointment(s)/Referral(s): Anson Last DO [Primary Care Provider] - 1-2 days Jacquelyn Pittman DO [Doctor of Osteopathic Medicine] - 10/23/19 (Call for an appointment) Activity/Diet/Wound Care/Special Instructions: You may shower. No lifting greater than 10 pounds. No [address] while taking pain medication. Stairs are okay. Keep the current dressing in place until next . Call if you develop fever, chills, nausea or vomiting, concerns about wound infection. Discharge Disposition: HOME SELF-CARE
[2019-10-15] MEDS ORDERED: PANTOPRAZOLE 40 MG TABLET PO SCH (09:00)
--- NOTE | 2019-10-15 22:27 | CDI ---
Documentation Clarification Form Date: 10/16/2019 From: Philippe Bonilla Phone: If you have a question about this query, please contact Marissa Wilkins Field Evidence Technician at [phone] between 8am and 5pm. Admit Date: 10/11/2019 Discharge Date: 10/14/2019 Patient Name: Toni Sierra Visit Number: [id number] ATTENTION: The Clinical Documentation Specialists (CDI) and [facility] Coding Staff appreciate your assistance in clarifying documentation. Please respond to the clarification below the line at the bottom and electronically sign. The CDI & [facility] Coding staff will review the response and follow-up if needed. Please note: Queries are made part of the Legal Health Record. If you have any questions, please contact the author of this message via ITS. Dear Jacquelyn Chambers., Ileus is documented in the Patient's postoperative day 1.He likely has a ileus due to the edema of the small bowel which was incarcerated. Patients Admitting Diagnosis: Incarcerated ventral incisional hernia Post-Operative Diagnosis: Incarcerated ventral incisional hernia Procedure performed: Ventral incisional herniorrhaphy with mesh History/Risk Factors: Colostomy Treatment: herniorrhaphy with mesh There was some edema of the small bowel which caused a short- term ileus In order to accurately reflect this patients severity of illness, please clarify if the Ileus___ -is a complication of surgical procedure -is an expected outcome of the surgical procedure -Other please specify -Unable to determine expected due to incarcerated hernia MTDD
== END 2019-10-14 13:14 | disposition home or self-care (01) | DRG 354 ==
LOC: EC 23:07 → 5NMEDONC 10-11 00:08
PROVIDERS: ADMIT Surgery; ATTEND Surgery
PROC: 0WUF0JZ Supplement Abdominal Wall with Synthetic Substitute, Open Approach (ICD-10-PCS; principal; 2019-10-11 08:15)
DX: K43.0 Incisional hernia with obstruction, without gangrene (principal); K56.7 Ileus, unspecified; F17.210 Nicotine dependence, cigarettes, uncomplicated; Z93.3 Colostomy status
CPT/HCPCS: 36415; 80048; 83605; 85025; 85027; 96360; 99285

== ENCOUNTER 2019-10-25 19:14 | Inpatient (IN) | payer OTHER ==
--- NOTE | 2019-10-25 19:32 | ED ---
General Adult HPI - General Chief complaint: Abdominal Pain Stated complaint: Abscess Post Op Time Seen by Provider: 10/25/19 19:16 Source: patient, EMS Mode of arrival: EMS - History of Present Illness Initial comments: Dictation was produced using [employer] dictation software. please excuse any grammatical, word or spelling errors. This patient was cared for during a federal and state declared state of emergency secondary to Covid 19 Chief Complaint: 44-year-old male transferred from [facility] emergency room for infected surgical site History of Present Illness: Is a 44-year-old male is transferred for [facility]. Patient recently had surgery on October 10. Procedure of ventral hernia repair performed here hospital by Dr. Pittman. Patient states that after the procedure he developed redness and pain to the surgical site. He initially presented [facility] where he had labs and imaging studies performed. Patient was found to have CT findings to suggest surgical site infection. There is also identifiable abscess. Patient does report having constitutional symptoms. At [facility] he had elevated white count with neutrophilia. He was given Zosyn. The ROS documented in this emergency department record has been reviewed and confirmed by me. Those systems with pertinent positive or negative responses have been documented in the HPI. All other systems are other negative and/or noncontributory. PHYSICAL EXAM: General Impression: Alert and oriented x3, not in acute distress HEENT: Normocephalic atraumatic, extra-ocular movements intact, pupils equal and reactive to light bilaterally, mucous membranes moist. Cardiovascular: Heart regular rate and rhythm Chest: Able to complete full sentences, no retractions, no tachypnea Abdomen: Surgical site shows erythema, there is also organomegaly to the anterior abdomen and Musculoskeletal: Pulses present and equal in all extremities, no peripheral edema Motor: no focal deficits noted Neurological: CN II-XII grossly intact, no focal motor or sensory deficits noted Skin: Intact with no visualized rashes Psych: Normal affect and mood ED course: 44-year-old male presents with surgical site infection. Vital signs upon arrival shows him for 12.6, rest of vital signs within acceptable limits. Chest intact mentation was reviewed. Patient has signs of infection however no signs of end organ dysfunction to suggest severe sepsis.Attempts are made to contact Dr. Pittman. She is not superintendent of generation today. Discussed patient case with Dr. howard who is on-call for Dr. Pittman requested patient be admitted to Dr. Pittman service. He states that patient should be admitted to Dr. Pittman service and he will continue inpatient care for the patient. Patient is also given vancomycin. At this point there is no clear timetable for any surgical procedure. Images were loaded to our EMR. - Related Data Previous Rx's Medication Instructions Recorded HYDROcodone/APAP 5-325MG [[place] 1 - 2 tab PO Q4H PRN #30 tab 10/14/19 5-325] Allergies Allergy/AdvReac Type Severity Reaction Status Date / Time No Known Allergies Allergy Verified 10/25/19 19:23 Review of Systems ROS Statement: Those systems with pertinent positive or pertinent negative responses have been documented in the HPI. ROS Other: All systems not noted in ROS Statement are negative. Past Medical History Past Medical History: No Reported History History of Any Multi-Drug Resistant Organisms: None Reported Past Surgical History: Hernia Repair Additional Past Surgical History / Comment(s): Colonoscopy, colostomy with reversal 2018, Past Anesthesia/Blood Transfusion Reactions: No Reported Reaction Past Psychological History: No Psychological Hx Reported Smoking Status: Current every day smoker Past Alcohol Use History: Occasional Past Drug Use History: None Reported - Past Family History Father Family Medical History: No Reported History Course Vital Signs 10/25/19 19:20 Temperature 102.6 F H Pulse Rate 94 Respiratory 18 Rate Blood Pressure 118/79 O2 Sat by Pulse 95 Oximetry Disposition Clinical Impression: Surgical site infection Disposition: ADMITTED IP TO THIS HOSP Condition: Fair Referrals: Anson Last DO [Primary Care Provider] - 1-2 days Decision Time: 19:41
[2019-10-25] MEDS ORDERED: ACETAMINOPHEN TAB 500 MG TAB PO STA (19:33)
[2019-10-25] MEDS ORDERED: VANCOMYCIN IV PER PHARMACY 1 EACH MISC MISCELLANE PRN (19:38)
[2019-10-25] MEDS ORDERED: ACETAMINOPHEN TAB 325 MG TAB PO PRN (19:41)
[2019-10-25] MEDS ORDERED: NALOXONE 0.4 MG/ML 1 ML VIAL IV PRN (19:41)
[2019-10-25] MEDS ORDERED: VANCOMYCIN 1,250 MG in SODIUM CHLORIDE 0.9% 250 ML IVPB STA (19:42)
[2019-10-25] MEDS: SODIUM CHLORIDE 0.9% 1,000 ML IV SCH (19:52)
[2019-10-25] MEDS: MORPHINE SULFATE 4 MG/ML SYRINGE IV PRN (19:55)
[2019-10-25 21:01] LABS: African American GFR (CKD) >90 (>60 ml/min/1.73 sqM); Anion Gap 7 mmol/L; Blood Urea Nitrogen 11 mg/dL (9-20); Calcium 7.3 mg/dL (8.4-10.2); Carbon Dioxide 26 mmol/L (22-30); Chloride 103 mmol/L (98-107); Glucose 93 mg/dL (74-99); Non-African American GFR(CKD) >90 (>60 ml/min/1.73 sqM); Sodium 136 mmol/L (137-145)
[2019-10-25 23:04] LABS: Basophils # (A) 0.1 k/uL (0-0.2); Basophils % (A) 0 %; Eosinophils # (A) 0.1 k/uL (0-0.7); Eosinophils % (A) 1 %; HCT 35.8 % (39.0-53.0); HGB 11.1 gm/dL (13.0-17.5); Hypochromasia Slight; Lymphocytes # (A) 1.8 k/uL (1.0-4.8); Lymphocytes % (A) 9 %; MCH 29.6 pg (25.0-35.0); MCHC 30.9 g/dL (31.0-37.0); MCV 95.6 fL (80.0-100.0); Mean Platelet Volume 8.4; Monocytes # (A) 1.3 k/uL (0-1.0); Monocytes % (A) 7 %; Neutrophils # (A) 16.6 k/uL (1.3-7.7); Neutrophils % (A) 82 %; RBC 3.75 m/uL (4.30-5.90); RDW 13.1 % (11.5-15.5); WBC 20.2 k/uL (3.8-10.6)
[2019-10-25 23:19] LABS: Platelet Count 695 k/uL (150-450)
[2019-10-26] MEDS: VANCOMYCIN 1,250 MG in SODIUM CHLORIDE 0.9% 250 ML IVPB SCH ×3 (05:45→18:04)
[2019-10-26] MEDS: SODIUM CHLORIDE 0.9% 1,000 ML IV SCH ×3 (05:46→22:26)
--- NOTE | 2019-10-26 08:09 | P.PCN ---
Date of Procedure: 10/25/19 Preoperative Diagnosis: Abscess Postoperative Diagnosis: Abscess Procedure(s) Performed: I and D of Abscess Anesthesia: none Surgeon: Alexey Gan Estimated Blood Loss (ml): 1 Condition: stable Description of Procedure: Area was prepped over previous incision, two of the yanci were removed and previous incision was opened in the most medial portion. using a hemostat the pocket was entered and 250cc of purulent drainage noted. Cultures take loculations broken. Irrigated with saline and packed with sterile gauze. Patient tolerated well
--- NOTE | 2019-10-26 08:17 | P.GSHP ---
History of Present Illness H&P Date: 10/25/19 44 y/o male presents with complaints of abdominal pain to outside hospital and was transferred to [facility] due to his recent surgery. He recently underwent hernia repair of his previous ostomy site hernia two weeks ago. He states the pain over the last two days has been worse, he noticed worsening swelling and fevers. CT performed at outside hospital was concerning for abscess Past Medical History Past Medical History: No Reported History Additional Past Medical History / Comment(s): infection r/t hernia repair 10/10 History of Any Multi-Drug Resistant Organisms: None Reported Past Surgical History: Hernia Repair Additional Past Surgical History / Comment(s): Colonoscopy, colostomy with reversal 2018, Past Anesthesia/Blood Transfusion Reactions: No Reported Reaction Past Psychological History: No Psychological Hx Reported Smoking Status: Current every day smoker Past Alcohol Use History: Occasional Additional Past Alcohol Use History / Comment(s): patient reports smoking 1/2 ppd. patient drinks socially Past Drug Use History: None Reported - Past Family History Father Family Medical History: No Reported History Medications and Allergies Home Medications Medication Instructions Recorded Confirmed Type No Known Home Medications 10/25/19 10/25/19 History Allergies Allergy/AdvReac Type Severity Reaction Status Date / Time No Known Allergies Allergy Verified 10/25/19 20:04 Surgical - Exam Osteopathic Statement: *. No significant issues noted on an osteopathic structural exam other than those noted in the History and Physical/Consult. Vital Signs Temp Pulse Resp BP Pulse Ox 102.6 F H 94 18 118/79 95 10/25/19 19:20 10/25/19 19:20 10/25/19 19:20 10/25/19 19:20 10/25/19 19:20 - General well developed, well nourished, no distress - Eyes PERRL - Neck trachea midline - Respiratory normal expansion, normal respiratory effort - Abdomen soft, TTP in midline. incision is CDI. there is fluctuance induration and erythema medial to incision. No rebound rigidity or guarding - Psychiatric oriented to time, oriented to person, oriented to place Results - Labs 10/25/19 20:40 10/25/19 20:40 Abnormal Lab Results - Last 24 Hours (Table) 10/25/19 10/25/19 Range/Units 20:40 20:40 WBC 20.2 H (3.8-10.6) k/uL RBC 3.75 L (4.30-5.90) m/uL Hgb 11.1 L (13.0-17.5) gm/dL Hct 35.8 L (39.0-53.0) % MCHC 30.9 L (31.0-37.0) g/dL Plt Count 695 H D (150-450) k/uL Neutrophils # 16.6 H (1.3-7.7) k/uL Monocytes # 1.3 H (0-1.0) k/uL Sodium 136 L (137-145) mmol/L Calcium 7.3 L (8.4-10.2) mg/dL Microbiology - Last 24 Hours (Table) 10/25/19 22:40 Gram Stain - Preliminary Abdomen Wound Culture - Preliminary 10/25/19 22:40 Anaerobic Culture - Preliminary Abdomen Diabetes panel 10/25/19 Range/Units 20:40 Sodium 136 L (137-145) mmol/L Potassium 4.0 (3.5-5.1) mmol/L Chloride 103 (98-107) mmol/L Carbon Dioxide 26 (22-30) mmol/L BUN 11 (9-20) mg/dL Creatinine 0.69 (0.66-1.25) mg/dL Glucose 93 (74-99) mg/dL Calcium 7.3 L (8.4-10.2) mg/dL Calcium panel 10/25/19 Range/Units 20:40 Calcium 7.3 L (8.4-10.2) mg/dL Pituitary panel 10/25/19 Range/Units 20:40 Sodium 136 L (137-145) mmol/L Potassium 4.0 (3.5-5.1) mmol/L Chloride 103 (98-107) mmol/L Carbon Dioxide 26 (22-30) mmol/L BUN 11 (9-20) mg/dL Creatinine 0.69 (0.66-1.25) mg/dL Glucose 93 (74-99) mg/dL Calcium 7.3 L (8.4-10.2) mg/dL Adrenal panel 10/25/19 Range/Units 20:40 Sodium 136 L (137-145) mmol/L Potassium 4.0 (3.5-5.1) mmol/L Chloride 103 (98-107) mmol/L Carbon Dioxide 26 (22-30) mmol/L BUN 11 (9-20) mg/dL Creatinine 0.69 (0.66-1.25) mg/dL Glucose 93 (74-99) mg/dL Calcium 7.3 L (8.4-10.2) mg/dL Assessment and Plan Assessment: Abscess, superficial in soft tissue Plan: Plan will be to open the previous incision and drain the abscess. Broad spectrum abx until cultures return. Patient will be admitted. Pain control. Further recs to follow. This was all discussed with the patient who was agreeable
[2019-10-26 08:44] LABS: Basophils # (A) 0.1 k/uL (0-0.2); Basophils % (A) 0 %; Eosinophils # (A) 0.1 k/uL (0-0.7); Eosinophils % (A) 1 %; HCT 31.4 % (39.0-53.0); Hypochromasia Slight; Lymphocytes # (A) 1.9 k/uL (1.0-4.8); Lymphocytes % (A) 11 %; MCHC 31.9 g/dL (31.0-37.0); MCV 94.1 fL (80.0-100.0); Mean Platelet Volume 7.6; Monocytes # (A) 0.8 k/uL (0-1.0); Monocytes % (A) 5 %; Neutrophils # (A) 13.6 k/uL (1.3-7.7); Neutrophils % (A) 81 %; Platelet Count 662 k/uL (150-450); RBC 3.34 m/uL (4.30-5.90); RDW 12.7 % (11.5-15.5); WBC 16.9 k/uL (3.8-10.6)
[2019-10-26] MEDS: PIPERACILLIN-TAZOBACTAM 3.375 GM in SODIUM CHLORIDE 0.9% 100 ML IVPB SCH ×3 (08:55→23:30)
[2019-10-26 09:11] LABS: African American GFR (CKD) >90 (>60 ml/min/1.73 sqM); Anion Gap 7 mmol/L; Blood Urea Nitrogen 11 mg/dL (9-20); Calcium 7.2 mg/dL (8.4-10.2); Carbon Dioxide 27 mmol/L (22-30); Chloride 106 mmol/L (98-107); Glucose 83 mg/dL (74-99); Non-African American GFR(CKD) >90 (>60 ml/min/1.73 sqM); Potassium 3.8 mmol/L (3.5-5.1); Sodium 140 mmol/L (137-145)
[2019-10-26] MEDS: MORPHINE SULFATE 4 MG/ML SYRINGE IV PRN (10:17)
--- NOTE | 2019-10-26 11:05 | P.PN ---
Subjective Progress Note Date: 10/26/19 Principal diagnosis: Wound infection The patient presented with pain near the incision since Tuesday. CT showed a large fluid collection. It feels better than admission. Denies nausea or vomiting. Denies diarrhea or constipation. He had a fever on presentation to the ER Objective - Vital Signs Vital signs: Vital Signs Temp 99.5 F 10/26/19 07:00 Pulse 91 10/26/19 07:00 Resp 19 10/26/19 07:00 BP 102/65 10/26/19 07:00 Pulse Ox 93 L 10/26/19 07:00 Intake & Output 10/25/19 10/26/19 10/26/19 18:59 06:59 18:59 Weight 66.678 kg Other: Voiding Method Toilet # Voids 1 - Constitutional General appearance: Present: cooperative, no acute distress - Gastrointestinal Gastrointestinal Comment(s): The incision has a 1 cm area of skin opening with packing. The packing was re moved. The wound was sterilely probed with a Q-tip. Drainage of purulent material. Some additional yanci were removed and attempted to open the subcutaneous tissue to place a wound VAC. The tissue didn't open easily and he had discomfort. Therefore that was stopped. General gastrointestinal: Present: normal bowel sounds - Labs CBC & Chem 7: 10/26/19 08:33 10/26/19 08:33 Labs: Abnormal Lab Results - Last 24 Hours (Table) 10/25/19 10/25/19 10/26/19 Range/Units 20:40 20:40 08:33 WBC 20.2 H 16.9 H (3.8-10.6) k/uL RBC 3.75 L 3.34 L (4.30-5.90) m/uL Hgb 11.1 L 10.0 L (13.0-17.5) gm/dL Hct 35.8 L 31.4 L (39.0-53.0) % MCHC 30.9 L (31.0-37.0) g/dL Plt Count 695 H D 662 H (150-450) k/uL Neutrophils # 16.6 H 13.6 H (1.3-7.7) k/uL Monocytes # 1.3 H (0-1.0) k/uL Sodium 136 L (137-145) mmol/L Calcium 7.3 L (8.4-10.2) mg/dL 10/26/19 Range/Units 08:33 WBC (3.8-10.6) k/uL RBC (4.30-5.90) m/uL Hgb (13.0-17.5) gm/dL Hct (39.0-53.0) % MCHC (31.0-37.0) g/dL Plt Count (150-450) k/uL Neutrophils # (1.3-7.7) k/uL Monocytes # (0-1.0) k/uL Sodium (137-145) mmol/L Calcium 7.2 L (8.4-10.2) mg/dL Microbiology - Last 24 Hours (Table) 10/25/19 22:40 Gram Stain - Preliminary Abdomen Wound Culture - Preliminary 10/25/19 22:40 Anaerobic Culture - Preliminary Abdomen Assessment and Plan (1) Surgical site infection Current Visit: Yes Status: Acute Code(s): T81.49XA - INFECTION FOLLOWING A PROCEDURE, OTHER SURGICAL SITE, INIT SNOMED Code(s): 34663087 Plan: The patient will be taken to the OR where the incision will be opened and the abscess drained. Wound VAC will be placed. On CT this all appeared to be external to the peritoneal cavity. Further recommendations to follow. Continue IV antibiotics pending culture and sensitivity
[2019-10-26] MEDS ORDERED: HYDROmorphone 0.5 MG/0.5 ML SYRINGE IVP PRN (12:58)
[2019-10-26] MEDS ORDERED: LIDOCAINE 1% (10MG/ML) FOR IV START INTRADERMA PRN (12:58)
[2019-10-26] MEDS ORDERED: IV FLUID CONTINUATION 400 ML IV ONE (15:10)
[2019-10-26] MEDS: LACTATED RINGERS 1,000 ML IV SCH (15:22)
[2019-10-26] MEDS ORDERED: ONDANSETRON 4 MG/2 ML VIAL IVP ONE (15:25)
[2019-10-26] MEDS ORDERED: DEXAMETHASONE SOD PHOSPHATE 10 MG/ML 1 ML VIAL IV ONE (15:26)
[2019-10-26] MEDS ORDERED: SUCCINYLCHOLINE CHLORIDE 100 MG/5 ML SYR IV ONE (15:41)
[2019-10-26] MEDS ORDERED: HYDROmorphone (PF) 1 MG/ML ONE (15:41)
[2019-10-26] MEDS ORDERED: MIDAZOLAM 2 MG/2 ML VIAL ONE (15:41)
[2019-10-26] MEDS ORDERED: fentaNYL (PF) 50 MCG/ML 2 ML AMP ONE (15:41)
[2019-10-26] MEDS ORDERED: PROPOFOL 10 MG/ML 20 ML VIAL IV ONE (15:41)
[2019-10-26] MEDS ORDERED: LIDOCAINE 1% INJ 10MG/ML (20 ML MDV) ONE (15:41)
[2019-10-26] MEDS ORDERED: LACTATED RINGERS 1,000 ML IV ONE ×2 (16:18→16:50)
--- NOTE | 2019-10-26 16:57 | P.OP ---
Date of Procedure: 10/26/19 Preoperative Diagnosis: Postoperative abscess Postoperative Diagnosis: Postoperative abscess Procedure(s) Performed: Incision and drainage of abscess, removal of mesh, placement of wound VAC Anesthesia: SHASHANK Surgeon: Jacquelyn Pittman Estimated Blood Loss (ml): 50 Pathology: other (Mesh for gross only) Condition: stable Disposition: PACU Indications for Procedure: Patient presented with an abscess. It was partly drained on the floor. It was not amenable to placing the wound VAC on the floor so I recommended he go to the OR Description of Procedure: The patient's taken the operative suite where he is prepped and draped in the usual sterile manner under general anesthetic. The yanci are removed. The subcutaneous tissue is fairly approximated laterally with a tunnel tracking medially. The Vicryl was removed from the subcutaneous tissue. The cavity was opened and entered. There is drainage of mucopurulent material. The cavity was explored. There was noted to be an opening which was actually going deep and lateral to his mesh repair. The mesh repair itself was intact. All the sutures in the fascia were intact. The cavity was tracking deep to the mesh. Therefore the sutures for the hernia repair were removed along with the mesh. The area underneath the fascia was carefully examined. There was no evidence of any fistula going through the peritoneum into the small bowel. The computed tomography scan yesterday didn't appear to show anything in the intra-abdominal cavity. A small amount of exudate was removed. The wound VAC was then placed. The main abscess cavity was medial to the edge of the incision 7 cm. It went inferiorly/medially and superiorly/medially 7 cm. The wound VAC was placed to suction and showed a little leak rate. He was taken recovery room in satisfactory condition. According to or personnel, WERE correct.
[2019-10-27] MEDS: VANCOMYCIN 1,250 MG in SODIUM CHLORIDE 0.9% 250 ML IVPB SCH ×3 (02:04→19:53)
[2019-10-27] MEDS ORDERED: VANCOMYCIN TROUGH DUE 1 EACH MISC MISCELLANE ONE ×2 (04:30→09:00)
[2019-10-27] MEDS: PIPERACILLIN-TAZOBACTAM 3.375 GM in SODIUM CHLORIDE 0.9% 100 ML IVPB SCH ×3 (09:11→23:11)
[2019-10-27 09:37] LABS: African American GFR (CKD) >90 (>60 ml/min/1.73 sqM); Non-African American GFR(CKD) >90 (>60 ml/min/1.73 sqM)
--- NOTE | 2019-10-27 11:59 | P.PN ---
Subjective Progress Note Date: 10/27/19 The patient is postop day 1 drainage of abscess. He feels much better than yesterday. Mild pain. No nausea or vomiting. Objective - Vital Signs Vital signs: Vital Signs Temp 98.2 F 10/27/19 07:20 Pulse 72 10/27/19 07:20 Resp 16 10/27/19 07:20 BP 116/72 10/27/19 07:20 Pulse Ox 93 L 10/27/19 07:20 Intake & Output 10/26/19 10/27/19 10/27/19 18:59 06:59 18:59 Intake Total 1700 2270 Output Total 5 500 Balance 1695 1770 Intake: IV 1700 Intake, IV Titration 2270 Amount Piperacillin-Tazobactam 3 100 .375 gm In Sodium Chloride 0.9% 100 ml @ 25 mls/hr IVPB Q8HR [facility] Rx# :[id number] Sodium Chloride 0.9% 1, 1920 000 ml @ 120 mls/hr IV . Q8H20M [facility] Rx#:[id number] Vancomycin 1,250 mg In 250 Sodium Chloride 0.9% 250 ml @ 125 mls/hr IVPB Q8H [facility] Rx#:[id number] Output: Drainage 500 Abdomen 500 Estimated Blood Loss 5 Other: Voiding Method Toilet # Voids 2 1 - Constitutional General appearance: Present: cooperative - Gastrointestinal Gastrointestinal Comment(s): Dressing is intact.. The canister from overnight has some bilious appearing fluid in it. Today it appears serous. General gastrointestinal: Present: normal bowel sounds, soft - Labs CBC & Chem 7: 10/26/19 08:33 10/27/19 08:34 Labs: Abnormal Lab Results - Last 24 Hours (Table) 10/27/19 Range/Units 08:34 Creatinine 0.56 L (0.66-1.25) mg/dL Microbiology - Last 24 Hours (Table) 10/25/19 22:40 Gram Stain - Preliminary Abdomen Wound Culture - Preliminary Gram Neg Bacilli Assessment and Plan (1) Surgical site infection Current Visit: Yes Status: Acute Code(s): T81.49XA - INFECTION FOLLOWING A PROCEDURE, OTHER SURGICAL SITE, INIT SNOMED Code(s): 19365524 Plan: Patient is postoperative day 1 drainage of abscess and explantation of mesh. The drainage in the wound VAC is concerning for bile stained fluid. The area under the mesh was examined yesterday with no sign of fistula. There was no bile stained fluid when the area was explored intraoperatively. There is concern that there could be a fistula present. The suction on the wound vac will be decreased and the area watched closely. The nurse was asked to notify me if there is any change in drainage. this was discussed with the patient and further recommendations to follow.
[2019-10-27 12:20] LABS: African American GFR (CKD) >90 (>60 ml/min/1.73 sqM); Anion Gap 7 mmol/L; Blood Urea Nitrogen 14 mg/dL (9-20); Calcium 7.2 mg/dL (8.4-10.2); Carbon Dioxide 26 mmol/L (22-30); Chloride 106 mmol/L (98-107); Glucose 158 mg/dL (74-99); Non-African American GFR(CKD) >90 (>60 ml/min/1.73 sqM); Potassium 4.3 mmol/L (3.5-5.1); Sodium 139 mmol/L (137-145)
[2019-10-27] MEDS: LACTATED RINGERS 1,000 ML IV SCH (18:44)
[2019-10-27] MEDS: HYDROcodone/APAP 5-325MG 1 EACH TAB PO PRN (21:02)
[2019-10-27] MEDS: MORPHINE SULFATE 4 MG/ML SYRINGE IV PRN (23:10)
[2019-10-28] MEDS: VANCOMYCIN 1,250 MG in SODIUM CHLORIDE 0.9% 250 ML IVPB SCH ×3 (02:19→17:27)
[2019-10-28] MEDS: SODIUM CHLORIDE 0.9% 1,000 ML IV SCH ×5 (02:48→23:06)
[2019-10-28] MEDS: PIPERACILLIN-TAZOBACTAM 3.375 GM in SODIUM CHLORIDE 0.9% 100 ML IVPB SCH ×3 (07:58→23:06)
[2019-10-28 08:03] LABS: African American GFR (CKD) >90 (>60 ml/min/1.73 sqM); Non-African American GFR(CKD) >90 (>60 ml/min/1.73 sqM)
--- NOTE | 2019-10-28 10:26 | P.PN ---
Subjective Progress Note Date: 10/28/19 Principal diagnosis: Wound infection The patient's doing well today. She had some occasional incisional discomfort. Tolerating a diet. No nausea or vomiting. Nursing reports minimal output from the wound VAC Objective - Vital Signs Vital signs: Vital Signs Temp 97.9 F 10/28/19 07:00 Pulse 70 10/28/19 07:00 Resp 17 10/28/19 07:00 BP 133/82 10/28/19 07:00 Pulse Ox 96 10/28/19 07:00 Intake & Output 10/27/19 10/28/19 10/28/19 18:59 06:59 18:59 Intake Total 2620 Balance 2620 Intake: Intake, IV Titration 2620 Amount Piperacillin-Tazobactam 3 200 .375 gm In Sodium Chloride 0.9% 100 ml @ 25 mls/hr IVPB Q8HR [facility] Rx# :[id number] Sodium Chloride 0.9% 1, 1920 000 ml @ 120 mls/hr IV . Q8H20M [facility] Rx#:[id number] Vancomycin 1,250 mg In 500 Sodium Chloride 0.9% 250 ml @ 125 mls/hr IVPB Q8H [facility] Rx#:[id number] Other: Voiding Method Toilet # Voids 2 1 - Constitutional General appearance: Present: average body habitus, cooperative, no acute distress - Gastrointestinal General gastrointestinal: Present: normal bowel sounds, soft Localized gastrointestinal: surgical scar: diffuse (Wound VAC is in place. No significant output in the canister. Abdominal wall shows no significant swelling where the prior abscess had been) - Labs CBC & Chem 7: 10/26/19 08:33 10/28/19 07:09 Labs: Abnormal Lab Results - Last 24 Hours (Table) 10/27/19 Range/Units 08:37 Creatinine 0.62 L (0.66-1.25) mg/dL Glucose 158 H (74-99) mg/dL Calcium 7.2 L (8.4-10.2) mg/dL Microbiology - Last 24 Hours (Table) 10/25/19 22:40 Gram Stain - Final Abdomen Wound Culture - Final Escherichia coli Klebsiella pneumoniae Assessment and Plan (1) Surgical site infection Current Visit: Yes Status: Acute Code(s): T81.49XA - INFECTION FOLLOWING A PROCEDURE, OTHER SURGICAL SITE, INIT SNOMED Code(s): 03230671 Plan: Culture and sensitivities are still pending. We'll continue current antibiotics. Change the wound VAC tomorrow. Monitor output. Progressing slowly.
[2019-10-28] MEDS: MORPHINE SULFATE 4 MG/ML SYRINGE IV PRN (12:55)
[2019-10-29] MEDS: VANCOMYCIN 1,250 MG in SODIUM CHLORIDE 0.9% 250 ML IVPB SCH ×2 (01:01→16:50)
[2019-10-29 07:27] LABS: HCT 32.5 % (39.0-53.0); HGB 9.7 gm/dL (13.0-17.5); Hypochromasia Slight; MCH 28.9 pg (25.0-35.0); MCV 96.2 fL (80.0-100.0); Platelet Count 596 k/uL (150-450); RBC 3.38 m/uL (4.30-5.90); RDW 13.3 % (11.5-15.5); WBC 11.5 k/uL (3.8-10.6)
[2019-10-29 07:44] LABS: African American GFR (CKD) >90 (>60 ml/min/1.73 sqM); Non-African American GFR(CKD) >90 (>60 ml/min/1.73 sqM)
[2019-10-29] MEDS: PIPERACILLIN-TAZOBACTAM 3.375 GM in SODIUM CHLORIDE 0.9% 100 ML IVPB SCH ×2 (07:54→18:03)
[2019-10-29] MEDS: MORPHINE SULFATE 4 MG/ML SYRINGE IV PRN ×2 (08:02→12:35)
--- NOTE | 2019-10-29 12:48 | P.PN ---
Subjective Progress Note Date: 10/29/19 Principal diagnosis: Wound infection The patient seen on rounds. He's feeling okay. Tolerating a diet. No nausea or vomiting. No fevers. Objective - Vital Signs Vital signs: Vital Signs Temp 98 F 10/29/19 07:13 Pulse 57 L 10/29/19 07:13 Resp 16 10/29/19 07:13 BP 146/87 10/29/19 07:13 Pulse Ox 94 L 10/29/19 07:13 Intake & Output 10/28/19 10/29/19 10/29/19 18:59 06:59 18:59 Intake Total 960 Output Total 250 300 Balance -250 660 Intake: Oral 960 Output: Drainage 250 300 Abdomen 250 300 Other: Voiding Method Toilet # Voids 3 - Constitutional General appearance: Present: cooperative, no acute distress - Gastrointestinal Gastrointestinal Comment(s): Soft, positive bowel sounds. The wound VAC was changed. There is some greenish mucoid drainage with granular material. The wound is irrigated no new wound VAC is applied. - Labs CBC & Chem 7: 10/29/19 05:58 10/29/19 05:58 Labs: Abnormal Lab Results - Last 24 Hours (Table) 10/29/19 Range/Units 05:58 WBC 11.5 H (3.8-10.6) k/uL RBC 3.38 L (4.30-5.90) m/uL Hgb 9.7 L (13.0-17.5) gm/dL Hct 32.5 L (39.0-53.0) % MCHC 30.0 L (31.0-37.0) g/dL Plt Count 596 H (150-450) k/uL Microbiology - Last 24 Hours (Table) 10/25/19 22:40 Anaerobic Culture - Final Abdomen Anaerobic Gram Positive Cocci Assessment and Plan (1) Surgical site infection Current Visit: Yes Status: Acute Code(s): T81.49XA - INFECTION FOLLOWING A PROCEDURE, OTHER SURGICAL SITE, INIT SNOMED Code(s): 87461971 (2) Small bowel fistula Current Visit: Yes Status: Acute Code(s): K63.2 - FISTULA OF INTESTINE SNOMED Code(s): 486535713 Plan: I had a long discussion with the patient. It appears the infected mesh resulted in a small bowel fistula. This is a low-volume fistula. We had had a discussion over the weekend that he would likely develop a recurrent hernia which would require subsequent repair. I recommendation would be to perform a laparotomy to repair the fistula. A biologic mesh could then be used, in the face of infection, as a definitive repair for the hernia. Questions were encouraged and answered. We'll have a discussion with OR to see about obtaining an appropriate mesh. Further recommendations to follow.
[2019-10-29] MEDS: SODIUM CHLORIDE 0.9% 1,000 ML IV SCH (18:13)
[2019-10-30] MEDS: PIPERACILLIN-TAZOBACTAM 3.375 GM in SODIUM CHLORIDE 0.9% 100 ML IVPB SCH ×4 (00:14→23:47)
[2019-10-30] MEDS: SODIUM CHLORIDE 0.9% 1,000 ML IV SCH ×2 (00:14→19:57)
[2019-10-30 07:44] LABS: African American GFR (CKD) >90 (>60 ml/min/1.73 sqM); Non-African American GFR(CKD) >90 (>60 ml/min/1.73 sqM)
--- NOTE | 2019-10-30 17:24 | P.PN ---
Subjective Progress Note Date: 10/30/19 Principal diagnosis: Wound infection The patient is seen on rounds. He's having minimal pain. No nausea or vomiting. Objective - Vital Signs Vital signs: Vital Signs Temp 98.3 F 10/30/19 15:12 Pulse 78 10/30/19 15:12 Resp 15 10/30/19 15:12 BP 111/70 10/30/19 15:12 Pulse Ox 96 10/30/19 06:47 Intake & Output 10/29/19 10/30/19 10/30/19 18:59 06:59 18:59 Intake Total 20 360 Balance 20 360 Intake: Oral 20 360 Other: Voiding Method Toilet # Voids 1 3 - Constitutional General appearance: Present: cooperative, no acute distress - Gastrointestinal General gastrointestinal: Present: normal bowel sounds, soft Localized gastrointestinal: surgical scar: diffuse (Wound VAC is in place. It's draining some bile stained fluid) - Labs CBC & Chem 7: 10/29/19 05:58 10/30/19 06:41 Assessment and Plan (1) Surgical site infection Current Visit: Yes Status: Acute Code(s): T81.49XA - INFECTION FOLLOWING A PROCEDURE, OTHER SURGICAL SITE, INIT SNOMED Code(s): 89945957 (2) Small bowel fistula Current Visit: Yes Status: Acute Code(s): K63.2 - FISTULA OF INTESTINE SNOMED Code(s): 103652860 Plan: The patient will go to the OR tomorrow for repair of the small bowel fistula. This may require small bowel resection. A biologic mesh will be used for a hernia repair as it is safe to use in a patient that had a recent infection. The exterior wound made be debrided. It will be left open and a wound VAC placed. The procedure, risks, complications were discussed. Questions were encouraged and answered. Asked the patient if he had family or friends he would like me to talk to after surgery and he said no. Further recommendations to follow.
[2019-10-31] MEDS ORDERED: ONDANSETRON 4 MG/2 ML VIAL IVP PRN (06:13)
[2019-10-31] MEDS ORDERED: DEXAMETHASONE SOD PHOSPHATE 10 MG/ML 1 ML VIAL IV ONE (06:13)
[2019-10-31] MEDS ORDERED: LIDOCAINE 1% (10MG/ML) FOR IV START INTRADERMA PRN (06:13)
[2019-10-31] MEDS ORDERED: HYDROmorphone 0.5 MG/0.5 ML SYRINGE IVP PRN (06:13)
[2019-10-31] MEDS ORDERED: ONDANSETRON 4 MG/2 ML VIAL IVP ONE (06:13)
[2019-10-31] MEDS ORDERED: SCOPOLAMINE 1.5MG/72HR PATCH TRANSDERM ONE (06:13)
[2019-10-31] MEDS ORDERED: MIDAZOLAM 2 MG/2 ML VIAL IV ONE (07:00)
[2019-10-31] MEDS: LACTATED RINGERS 1,000 ML IV SCH (07:29)
[2019-10-31] MEDS ORDERED: MIDAZOLAM 2 MG/2 ML VIAL ONE (07:32)
[2019-10-31] MEDS ORDERED: LIDOCAINE 1% INJ 10MG/ML (20 ML MDV) ONE (07:32)
[2019-10-31] MEDS ORDERED: SUCCINYLCHOLINE CHLORIDE 100 MG/5 ML SYR IV ONE (07:32)
[2019-10-31] MEDS ORDERED: PROPOFOL 10 MG/ML 20 ML VIAL IV ONE (07:32)
[2019-10-31] MEDS ORDERED: ROCURONIUM BROMIDE 10 MG/ML 5 ML VIAL IV ONE (07:32)
[2019-10-31] MEDS ORDERED: PHENYLEPHRINE-0.9% NACL SYG 1 MG/10 ML SYRINGE ONE (07:32)
[2019-10-31] MEDS ORDERED: NEOSTIGMINE 1 MG/ML 10 ML VIAL ONE (07:32)
[2019-10-31] MEDS ORDERED: fentaNYL (PF) 50 MCG/ML 2 ML AMP ONE (07:32)
[2019-10-31] MEDS ORDERED: GLYCOPYRROLATE 0.2 MG/ML 2 ML VIAL ONE (07:32)
[2019-10-31 07:57] LABS: African American GFR (CKD) >90 (>60 ml/min/1.73 sqM); Non-African American GFR(CKD) >90 (>60 ml/min/1.73 sqM)
--- NOTE | 2019-10-31 08:04 | P.ANPRN ---
Procedure Note - Anesthesia - Epidural/Spinal Epidural Continuous Date of Procedure: 10/31/19 Procedure Start Time: 06:58 Procedure Stop Time: 07:15 Location of Patient: PreOp Indication: Acute Post-Operative Pain, Analgesia, Requested by Surgeon Sedation Type: Sedate with meaningful contact maintained Preparation: Sterile Dressing Position: Sitting Catheter: Indwelling Needle Guage: 18 Injectate: Test Dose Lidocaine1.5% w/1:200,000 epi Blood Aspirated: No Pain Paresthesia on Injection Noted: No Events: Uneventful and Well Tolerated (Epidural at L2-3 level.DUSTIN to NS.Epidural space at 4 cm from skin.Catheter at 10 cm at skin.)
[2019-10-31] MEDS ORDERED: LACTATED RINGERS 1,000 ML IV ONE ×3 (09:14→10:54)
--- NOTE | 2019-10-31 11:26 | P.OP ---
Date of Procedure: 10/31/19 Preoperative Diagnosis: Enterocutaneous fistula, wound infection, hernia Postoperative Diagnosis: Same Procedure(s) Performed: Exploratory laparotomy, lysis of adhesions, segmental small bowel resection, ventral incisional herniorrhaphy Anesthesia: SHASHANK Surgeon: Jacquelyn Pittman Estimated Blood Loss (ml): 300 Pathology: other Condition: stable Disposition: PACU Indications for Procedure: Patient had presented with a infection at a hernia repair site. That area had been drained in the old mesh removed. He developed bilious drainage consistent with a fistula. Description of Procedure: The patient's taken the operative suite where she prepped and draped in the usual sterile manner under general endotracheal anesthetic. The abdomen is entered through a midline incision. The fascia was incised. The peritoneum was entered and then adhesions were tediously lysed for about a hour and a half. Most adhesions were filmy. In the left lower quadrant near the site of the wound with drainage, the small bowel was densely matted together with a thick fibrinous layer and exudate. There was a small abscess and a couple of mL's of purulent fluid were aspirated between the loops. The bowel was run from ligament of Treitz distally and distally to proximally and no obvious fistula was seen. The abdomen wound was irrigated and aspirated. The bowel was then packed over to the right abdomen. The peritoneum under the left abdomen was debrided with curettes. The fascial weakness was about 10 x 15 cm. The fascia was weak also medially near the midline for about 6 cm. The 20 x 25 cm mesh was rehydrated according to specifications. It was then trimmed down about one and half centimeters in width and about 4 cm in length. It was secured to the fascia in multiple points around the periphery and midportion of the mesh using 1 Vicryl. Once the mesh had been secured all the way from the left lateral abdomen to the midline, the small bowel was reexamined. It was run proximally to distally twice and no obvious enteric drainage was noted. There was one portion in the jejunum however where the small abscess in bed and this was the portion of the bowel most adherent to the prior hernia site. It's felt that there is a low volume fistula opening there. It was felt to be safer to remove a small section of the bowel there and potentially leave a fistula. Therefore healthy bowel proximally and distally was tagged along the antimesenteric b orders using 3-0 Vicryl. Small openings were made in each limb of the bowel and a stapler was placed and fired. There is a good anastomotic line was no bleeding. Opening was made in the mesentery and then a second firing was used to close the defect. The mesentery was then clamped, cut, tied with 0 Vicryl suture. Mesenteric defect was closed with 3-0 Vicryl. The abdomen was then again irrigated and aspirated. The bowel was again run and the rest the bowel looked pink and healthy. It was allowed to lay in gentle loops. A AHSAN drain was placed through small stab incision and allowed to looped down into the pelvis and along the left paracolic gutter. #1 Vicryl suture was then used in the midline incision through the fascia taking bites of the mesh. The mesh was then further secured to the posterior fascia on the right side for about another 5 cm using 1 Vicryl. The midline was then closed with 1 Vicryl. The skin was closed with yanci. A dressing was applied. The open wound of the left abdomen was then reexamined and a wound VAC was reapplied. He was taken recovery room in satisfactory condition. According to or personnel, all counts were correct.
[2019-10-31] MEDS: KETOROLAC 30 MG/ML 1 ML VIAL IVP SCH ×3 (12:54→17:00)
[2019-10-31] MEDS: PIPERACILLIN-TAZOBACTAM 3.375 GM in SODIUM CHLORIDE 0.9% 100 ML IVPB SCH ×2 (12:54→16:59)
[2019-10-31] MEDS: SODIUM CHLORIDE 0.9% 1,000 ML IV SCH ×2 (16:50→20:20)
[2019-10-31] MEDS: HEPARIN SODIUM,PORCINE 5,000 UNIT/ML 1 ML VIAL SQ SCH (17:00)
[2019-11-01] MEDS: KETOROLAC 30 MG/ML 1 ML VIAL IVP SCH ×4 (00:11→16:18)
[2019-11-01] MEDS: HEPARIN SODIUM,PORCINE 5,000 UNIT/ML 1 ML VIAL SQ SCH ×4 (00:11→23:47)
[2019-11-01] MEDS: PIPERACILLIN-TAZOBACTAM 3.375 GM in SODIUM CHLORIDE 0.9% 100 ML IVPB SCH ×4 (00:12→23:47)
[2019-11-01] MEDS: BUPIVACAINE (PF) 0.5% 31.3 ML, HYDROmorphone 5 MG in SODIUM CHLORIDE 0.9% 216 ML EPIDURAL PRN ×2 (03:51→20:45)
[2019-11-01] MEDS: LACTATED RINGERS 1,000 ML IV SCH (04:51)
--- NOTE | 2019-11-01 05:23 | P.PN ---
Progress Note - Text Progress Note Date: 11/01/19 The patient had thoracic epidural catheter placement for postoperative pain con trol. Postop day #( 1 ), status post Exp lap . The patient is doing well. The pain is well controlled. Patient denies any weakness or paresthesia in the lower extremities.,or any ba ck pain. There are no signs of infection around the epidural catheter skin entry site. We will continue the epidural infusion of local anesthetics as per protocol.
[2019-11-01 08:32] LABS: Basophils # (A) 0.1 k/uL (0-0.2); Basophils % (A) 0 %; Eosinophils # (A) 0.1 k/uL (0-0.7); Eosinophils % (A) 0 %; HCT 33.3 % (39.0-53.0); HGB 9.9 gm/dL (13.0-17.5); Hypochromasia Slight; Lymphocytes # (A) 2.6 k/uL (1.0-4.8); Lymphocytes % (A) 14 %; MCH 28.7 pg (25.0-35.0); MCHC 29.7 g/dL (31.0-37.0); MCV 96.9 fL (80.0-100.0); Mean Platelet Volume 7.6; Monocytes # (A) 1.2 k/uL (0-1.0); Monocytes % (A) 6 %; Neutrophils # (A) 14.8 k/uL (1.3-7.7); Neutrophils % (A) 78 %; Platelet Count 778 k/uL (150-450); RBC 3.43 m/uL (4.30-5.90); RDW 13.8 % (11.5-15.5); WBC 18.9 k/uL (3.8-10.6)
[2019-11-01 08:45] LABS: Albumin 2.7 g/dL (3.5-5.0); Calcium 8.2 mg/dL (8.4-10.2); Potassium 5.2 mmol/L (3.5-5.1); Total Bilirubin 0.4 mg/dL (0.2-1.3); Total Protein 6.3 g/dL (6.3-8.2)
[2019-11-01] MEDS: DEXTROSE 5%-0.45% NACL 1,000 ML IV SCH (10:43)
--- NOTE | 2019-11-01 11:26 | P.PN ---
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 He's doing well. Pain is well controlled with the epidural. NG is working. No nausea or vomiting. Doing well with the incentive spirometry. Objective - Vital Signs Vital signs: Vital Signs Temp 98.2 F 11/01/19 07:00 Pulse 102 H 11/01/19 07:00 Resp 18 11/01/19 07:00 BP 103/67 11/01/19 07:00 Pulse Ox 93 L 11/01/19 07:00 Intake & Output 10/31/19 11/01/19 11/01/19 18:59 06:59 18:59 Intake Total 3200 500 Output Total 690 1280 50 Balance 2510 -780 -50 Weight 66.678 kg Intake: IV 3200 Intake, IV Titration 500 Amount Piperacillin-Tazobactam 3 100 .375 gm In Sodium Chloride 0.9% 100 ml @ 25 mls/hr IVPB Q8HR MICHELLE Rx# :[id number] Sodium Chloride 0.9% 1, 400 000 ml @ 50 mls/hr IV . Q20H MICHELLE Rx#:[id number] Output: Drainage 255 50 Abdomen 90 Right Abdomen 165 50 Urine 300 1025 Estimated Blood Loss 390 Other: Voiding Method Indwelling Catheter Indwelling Catheter - Constitutional General appearance: Present: cooperative, no acute distress - Respiratory Respiratory: bilateral: CTA - Cardiovascular Rhythm: regular - Gastrointestinal General gastrointestinal: Present: soft Localized gastrointestinal: surgical scar: diffuse (Dressings are intact. The wound VAC has scant serosanguineous drainage. AHSAN has a small amount of serosanguineous drainage.) - Labs CBC & Chem 7: 11/01/19 07:21 11/01/19 07:24 Labs: Abnormal Lab Results - Last 24 Hours (Table) 11/01/19 11/01/19 Range/Units 07:21 07:24 WBC 18.9 H (3.8-10.6) k/uL RBC 3.43 L (4.30-5.90) m/uL Hgb 9.9 L (13.0-17.5) gm/dL Hct 33.3 L (39.0-53.0) % MCHC 29.7 L (31.0-37.0) g/dL Plt Count 778 H (150-450) k/uL Neutrophils # 14.8 H (1.3-7.7) k/uL Monocytes # 1.2 H (0-1.0) k/uL Potassium 5.2 H (3.5-5.1) mmol/L BUN 21 H (9-20) mg/dL Creatinine 1.35 H (0.66-1.25) mg/dL Calcium 8.2 L (8.4-10.2) mg/dL Albumin 2.7 L (3.5-5.0) g/dL Assessment and Plan (1) Surgical site infection Current Visit: Yes Status: Acute Code(s): T81.49XA - INFECTION FOLLOWING A PROCEDURE, OTHER SURGICAL SITE, INIT SNOMED Code(s): 01176771 (2) Small bowel fistula Current Visit: Yes Status: Acute Code(s): K63.2 - FISTULA OF INTESTINE SNOMED Code(s): 948003332 Plan: Continue the epidural for pain. Encourage incentive spirometry. His IV fluids will be adjusted due to increase in BUN/creatinine creatinine. He has a reactive leukocytosis. If his epidural will allow we'll get him up to a chair today. Progressing slowly. The intraoperative findings were discussed with him.
[2019-11-02] MEDS: KETOROLAC 30 MG/ML 1 ML VIAL IVP SCH ×2 (02:17→06:10)
--- NOTE | 2019-11-02 07:13 | P.PN ---
Progress Note - Text Progress Note Date: 11/02/19 Postoperative day # status post laparotomy small bowel resections ,epidural catheter placed for postoperative analgesia, patient doing well epidural site okay, patient currently on combination of epidural infusion solution of Ropivacaine 0.0625% and Dilaudid 20 g per mL the infusion rate at 12 ml per hour , patient had no motor deficit epidural site okay , vital signs stable ,VAS 1/10 , Assessment and plan= post operative day # 2 patient doing well ,pain well controlled , there is no anesthesia related complications
[2019-11-02 08:05] LABS: HCT 28.2 % (39.0-53.0); HGB 8.5 gm/dL (13.0-17.5); Hypochromasia Slight; MCH 28.9 pg (25.0-35.0); MCHC 30.3 g/dL (31.0-37.0); MCV 95.5 fL (80.0-100.0); Mean Platelet Volume 7.6; Platelet Count 619 k/uL (150-450); RBC 2.95 m/uL (4.30-5.90); WBC 13.4 k/uL (3.8-10.6)
[2019-11-02 08:14] LABS: Calcium 7.9 mg/dL (8.4-10.2); Potassium 4.2 mmol/L (3.5-5.1)
[2019-11-02] MEDS: DEXTROSE 5%-0.45% NACL 1,000 ML IV SCH ×3 (08:48→21:07)
[2019-11-02] MEDS: SODIUM CHLORIDE 0.9% 1,000 ML IV SCH (08:49)
[2019-11-02] MEDS: PIPERACILLIN-TAZOBACTAM 3.375 GM in SODIUM CHLORIDE 0.9% 100 ML IVPB SCH ×3 (09:01→23:47)
[2019-11-02] MEDS: HEPARIN SODIUM,PORCINE 5,000 UNIT/ML 1 ML VIAL SQ SCH ×3 (09:02→23:50)
--- NOTE | 2019-11-02 10:54 | P.PN ---
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 Pain is well controlled. No shortness of breath. Using incentive spirometry Objective - Vital Signs Vital signs: Vital Signs Temp 98.6 F 11/02/19 07:13 Pulse 89 11/02/19 07:13 Resp 16 11/02/19 07:13 BP 108/70 11/02/19 07:13 Pulse Ox 95 11/02/19 07:13 Intake & Output 11/01/19 11/02/19 11/02/19 18:59 06:59 18:59 Intake Total 202.8 Output Total 1200 665 Balance -1200 -462.2 Weight 66.678 kg Intake: Intake, IV Titration 202.8 Amount Bupivacaine (Pf) 0.5% 31. 202.8 3 ml HYDROmorphone 5 mg In Sodium Chloride 0.9% 216 ml @ Per Protocol EPIDURAL .Q0M PRN Rx#: [id number] Output: Gastric Drainage 500 200 Drainage 100 90 Abdomen 50 Right Abdomen 100 40 Urine 600 375 Other: Voiding Method Indwelling Catheter Indwelling Catheter - Constitutional General appearance: Present: cooperative - Respiratory Respiratory: bilateral: CTA - Cardiovascular Rhythm: regular - Gastrointestinal General gastrointestinal: Present: absent bowel sounds, soft Localized gastrointestinal: surgical scar: diffuse (AHSAN is serous, wound vac with small amount of serosang drainage. Dressing clean and dry) - Labs CBC & Chem 7: 11/02/19 07:35 11/02/19 07:35 Labs: Abnormal Lab Results - Last 24 Hours (Table) 11/02/19 11/02/19 Range/Units 07:35 07:35 WBC 13.4 H (3.8-10.6) k/uL RBC 2.95 L (4.30-5.90) m/uL Hgb 8.5 L (13.0-17.5) gm/dL Hct 28.2 L (39.0-53.0) % MCHC 30.3 L (31.0-37.0) g/dL Plt Count 619 H (150-450) k/uL Sodium 133 L (137-145) mmol/L Calcium 7.9 L (8.4-10.2) mg/dL Assessment and Plan (1) Surgical site infection Current Visit: Yes Status: Acute Code(s): T81.49XA - INFECTION FOLLOWING A PROCEDURE, OTHER SURGICAL SITE, INIT SNOMED Code(s): 22581225 (2) Small bowel fistula Current Visit: Yes Status: Acute Code(s): K63.2 - FISTULA OF INTESTINE SNOMED Code(s): 575070885 Plan: Await return of bowel function. Monitor electrolytes. Encourage incentive spirometry. Local wound care. Progressing slowly
[2019-11-02] MEDS: BUPIVACAINE (PF) 0.5% 31.3 ML, HYDROmorphone 5 MG in SODIUM CHLORIDE 0.9% 216 ML EPIDURAL PRN (17:07)
[2019-11-03] MEDS: DEXTROSE 5%-0.45% NACL 1,000 ML IV SCH ×3 (02:33→20:32)
[2019-11-03] MEDS: SODIUM CHLORIDE 0.9% 1,000 ML IV SCH ×2 (02:33→20:29)
[2019-11-03 06:34] LABS: HCT 29.2 % (39.0-53.0); HGB 8.9 gm/dL (13.0-17.5); Hypochromasia Slight; MCH 29.1 pg (25.0-35.0); MCHC 30.4 g/dL (31.0-37.0); MCV 95.6 fL (80.0-100.0); Mean Platelet Volume 7.3; Platelet Count 619 k/uL (150-450); RBC 3.06 m/uL (4.30-5.90); RDW 13.9 % (11.5-15.5); WBC 10.7 k/uL (3.8-10.6)
[2019-11-03 06:45] LABS: African American GFR (CKD) >90 (>60 ml/min/1.73 sqM); Anion Gap 4 mmol/L; Blood Urea Nitrogen 10 mg/dL (9-20); Calcium 8.2 mg/dL (8.4-10.2); Carbon Dioxide 33 mmol/L (22-30); Chloride 96 mmol/L (98-107); Glucose 97 mg/dL (74-99); Non-African American GFR(CKD) 86 (>60 ml/min/1.73 sqM); Potassium 4.3 mmol/L (3.5-5.1); Sodium 133 mmol/L (137-145)
[2019-11-03] MEDS: BUPIVACAINE (PF) 0.5% 31.3 ML, HYDROmorphone 5 MG in SODIUM CHLORIDE 0.9% 216 ML EPIDURAL PRN (06:58)
[2019-11-03] MEDS: HEPARIN SODIUM,PORCINE 5,000 UNIT/ML 1 ML VIAL SQ SCH ×3 (07:15→23:22)
[2019-11-03] MEDS: PIPERACILLIN-TAZOBACTAM 3.375 GM in SODIUM CHLORIDE 0.9% 100 ML IVPB SCH ×3 (07:15→23:28)
--- NOTE | 2019-11-03 10:56 | P.PN ---
Progress Note - Text Date: 11/03/2019 Time: 01 07 The patient is status post, exploratory laparotomy, postoperative day number 3 The patient has no complaints of nausea vomiting or headache. The patient does not complain of any lower extremity numbness or weakness. The epidural is running at 12 mL per hour. VAS 1-10. The epidural we will be discontinued this morning. Pain meds will be provided the patient by the service.
--- NOTE | 2019-11-03 12:29 | P.PN ---
Subjective Progress Note Date: 11/03/19 Patient seen and examined at bedside. States his pain is well-controlled. Evaluated by anesthesia and plan is for removal of epidural today. Nasogastric tube in place along with AHSAN drain. Patient believes he has a small amount of flatus one time this morning. Objective - Vital Signs Vital signs: Vital Signs Temp 98.4 F 11/03/19 06:56 Pulse 68 11/03/19 06:56 Resp 16 11/03/19 06:56 BP 109/69 11/03/19 06:56 Pulse Ox 94 L 11/03/19 06:56 Intake & Output 11/02/19 11/03/19 11/03/19 18:59 06:59 18:59 Intake Total 244.4 366.2 Output Total 1950 1100 20 Balance -1705.6 -733.8 -20 Intake: Intake, IV Titration 244.4 366.2 Amount Bupivacaine (Pf) 0.5% 31. 244.4 166.2 3 ml HYDROmorphone 5 mg In Sodium Chloride 0.9% 216 ml @ Per Protocol EPIDURAL .Q0M PRN Rx#: [id number] Piperacillin-Tazobactam 3 200 .375 gm In Sodium Chloride 0.9% 100 ml @ 25 mls/hr IVPB Q8HR MICHELLE Rx# :[id number] Output: Gastric Drainage 700 500 Drainage 50 20 Abdomen 50 Right Abdomen 20 Urine 1200 600 Other: Voiding Method Indwelling Catheter Indwelling Catheter Indwelling Catheter # Voids 1 - Constitutional General appearance: Present: cooperative, no acute distress - EENT Eyes: Present: PERRLA - Respiratory Details: No difficulty with respiration - Gastrointestinal Gastrointestinal Comment(s): Soft, appropriate tenderness, nondistended, no rebound, no guarding, incision site clean, dry and intact with wound VAC in place, AHSAN drain in place with serosanguineous output - Musculoskeletal Musculoskeletal: Present: generalized weakness - Labs CBC & Chem 7: 11/03/19 05:54 11/03/19 05:54 Labs: Abnormal Lab Results - Last 24 Hours (Table) 11/03/19 11/03/19 Range/Units 05:54 05:54 WBC 10.7 H (3.8-10.6) k/uL RBC 3.06 L (4.30-5.90) m/uL Hgb 8.9 L (13.0-17.5) gm/dL Hct 29.2 L (39.0-53.0) % MCHC 30.4 L (31.0-37.0) g/dL Plt Count 619 H (150-450) k/uL Sodium 133 L (137-145) mmol/L Chloride 96 L (98-107) mmol/L Carbon Dioxide 33 H (22-30) mmol/L Calcium 8.2 L (8.4-10.2) mg/dL Assessment and Plan Plan: Postoperative from enterocutaneous fistula takedown and bowel resection - We will continue nasogastric tube at this time and await further bowel function - Epidural was to be removed, per anesthesia. IV and oral pain medications will begin. - Continue AHSAN drain and wound VAC - Increase activity
[2019-11-03] MEDS: HYDROcodone/APAP 5-325MG 1 EACH TAB PO PRN (23:30)
[2019-11-04] MEDS: DEXTROSE 5%-0.45% NACL 1,000 ML IV SCH ×3 (02:13→17:43)
[2019-11-04] MEDS: MORPHINE SULFATE 4 MG/ML SYRINGE IV PRN (07:30)
[2019-11-04] MEDS: PIPERACILLIN-TAZOBACTAM 3.375 GM in SODIUM CHLORIDE 0.9% 100 ML IVPB SCH ×2 (07:30→16:24)
[2019-11-04] MEDS: HEPARIN SODIUM,PORCINE 5,000 UNIT/ML 1 ML VIAL SQ SCH ×2 (07:30→16:24)
--- NOTE | 2019-11-04 09:16 | P.PN ---
Subjective Progress Note Date: 11/04/19 Patient seen and examined at bedside. 1700 mL of bilious material from NG tube over the last 24 hours. Patient states that he is having some mild flatus. Denies nausea or vomiting. AHSAN drain with minimal output. Wound VAC in place. Pain is overall well-controlled after epidural was removed. Per nursing, ambulation has been encouraged however patient is refusing. Objective - Vital Signs Vital signs: Vital Signs Temp 98.3 F 11/04/19 07:00 Pulse 66 11/04/19 07:00 Resp 16 11/04/19 07:00 BP 126/85 11/04/19 07:00 Pulse Ox 96 11/04/19 07:00 Intake & Output 11/03/19 11/04/19 11/04/19 18:59 06:59 18:59 Output Total 2085 1585 500 Balance -2085 -1585 -500 Output: Gastric Drainage 700 950 Drainage 35 10 Right Abdomen 35 10 Urine 1350 625 500 Uretheral (Peter) 350 Other: Voiding Method Indwelling Catheter # Voids 2 1 - Constitutional General appearance: Present: no acute distress - Respiratory Details: No difficulty with respiration - Gastrointestinal Gastrointestinal Comment(s): Soft, appropriate tenderness, nondistended, no rebound, no guarding, incision site with wound VAC in place, AHSAN drain in place - Psychiatric Psychiatric: Present: A&O x's 3 - Labs CBC & Chem 7: 11/03/19 05:54 11/03/19 05:54 Assessment and Plan Plan: Postoperative from enterocutaneous fistula takedown and bowel resection - Patient is requesting nasogastric tube removal. He has had 1700 mL of bilious material output over the past 24 hours. I did discuss this with the patient and discussed the risk of aspiration and bowel function delay after surgery. He is understanding and we will continue nasogastric tube at this time due to the high output. - Discontinued morphine, started Dilaudid for pain control - Continue AHSAN drain and wound VAC - Discussed in depth with the patient the importance of ambulation and activity and return of bowel function. Patient states that he will ambulate and be up from the bed in the chair today. - Recommended chewing gum - Progressing slowly
[2019-11-04] MEDS ORDERED: BENZOCAINE SPRAY 1 CAN MUCOUS MEM PRN (10:03)
[2019-11-04] MEDS: HYDROmorphone 1 MG/ML 1 ML SYRINGE IVP PRN ×3 (11:31→21:07)
[2019-11-04] MEDS: INSULIN ASPART (NovoLOG) 100 UNIT/ML VIAL SQ SCH ×2 (11:37→16:54)
[2019-11-04 12:24] LABS: Ionized Calcium 4.7 mg/dL (4.5-5.3)
[2019-11-04 12:33] LABS: ALT 27 U/L (4-49); AST 28 U/L (17-59); African American GFR (CKD) >90 (>60 ml/min/1.73 sqM); Albumin 3.1 g/dL (3.5-5.0); Alkaline Phosphatase 181 U/L (38-126); Anion Gap 10 mmol/L; Blood Urea Nitrogen 5 mg/dL (9-20); Calcium 8.7 mg/dL (8.4-10.2); Carbon Dioxide 30 mmol/L (22-30); Chloride 97 mmol/L (98-107); Glucose 126 mg/dL (74-99); Magnesium 2.3 mg/dL (1.6-2.3); Non-African American GFR(CKD) 88 (>60 ml/min/1.73 sqM); Phosphorus 3.9 mg/dL (2.5-4.5); Potassium 3.9 mmol/L (3.5-5.1); Sodium 137 mmol/L (137-145); Total Bilirubin 0.6 mg/dL (0.2-1.3); Total Protein 6.9 g/dL (6.3-8.2)
[2019-11-04 12:52] LABS: Triglycerides 215 mg/dL (<150)
[2019-11-04] MEDS: FAT EMULSION 20% 250 ML IV SCH (13:48)
[2019-11-04] MEDS ORDERED: PARENTERAL ELECTROLYTES 20 ML, MVI, ADULT NO.4 WITH VIT K 10 ML, TRACE (CONC-1ML/DOSE) ... IV ONE ×4 (14:00)
[2019-11-04 16:27] LABS: Glucose,Whole Blood 122 mg/dL (75-99)
[2019-11-04] MEDS: SODIUM CHLORIDE 0.9% 1,000 ML IV SCH (21:06)
[2019-11-05] MEDS: INSULIN ASPART (NovoLOG) 100 UNIT/ML VIAL SQ SCH ×4 (00:12→17:57)
[2019-11-05] MEDS: HEPARIN SODIUM,PORCINE 5,000 UNIT/ML 1 ML VIAL SQ SCH ×4 (00:12→15:35)
[2019-11-05] MEDS: PIPERACILLIN-TAZOBACTAM 3.375 GM in SODIUM CHLORIDE 0.9% 100 ML IVPB SCH ×3 (00:12→15:35)
[2019-11-05] MEDS: DEXTROSE 5%-0.45% NACL 1,000 ML IV SCH ×3 (00:15→12:13)
[2019-11-05 00:31] LABS: Glucose,Whole Blood 114 mg/dL (75-99)
[2019-11-05 05:48] LABS: Glucose,Whole Blood 125 mg/dL (75-99)
[2019-11-05] MEDS: SODIUM CHLORIDE 0.9% 1,000 ML IV SCH (07:15)
[2019-11-05] MEDS: 1: PARENTERAL ELECTROLYTES 20 ML, MVI, ADULT NO.4 WITH VIT K 10 ML, TRACE (CONC-1ML/DOSE IV SCH ×8 (08:14→22:52)
[2019-11-05] MEDS: HYDROmorphone 1 MG/ML 1 ML SYRINGE IVP PRN ×2 (08:20→16:01)
[2019-11-05 08:38] LABS: Basophils % (A) 0 %; Eosinophils # (A) 0.3 k/uL (0-0.7); Eosinophils % (A) 2 %; HCT 29.9 % (39.0-53.0); HGB 8.9 gm/dL (13.0-17.5); Hypochromasia Slight; Lymphocytes # (A) 1.6 k/uL (1.0-4.8); Lymphocytes % (A) 12 %; MCHC 29.9 g/dL (31.0-37.0); MCV 93.6 fL (80.0-100.0); Mean Platelet Volume 7.3; Monocytes # (A) 0.6 k/uL (0-1.0); Monocytes % (A) 5 %; Neutrophils # (A) 10.1 k/uL (1.3-7.7); Neutrophils % (A) 79 %; Platelet Count 697 k/uL (150-450); RBC 3.19 m/uL (4.30-5.90); RDW 13.9 % (11.5-15.5); WBC 12.7 k/uL (3.8-10.6)
[2019-11-05 09:00] LABS: Calcium 8.7 mg/dL (8.4-10.2); Magnesium 2.2 mg/dL (1.6-2.3); Phosphorus 4.1 mg/dL (2.5-4.5); Potassium 3.9 mmol/L (3.5-5.1); Total Bilirubin 0.5 mg/dL (0.2-1.3); Total Protein 6.8 g/dL (6.3-8.2)
--- NOTE | 2019-11-05 10:32 | P.PN ---
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 He is passing some flatus. Complaining of discomfort from the NG tube. Admits to flatus. No chest pain or shortness of breath. Objective - Vital Signs Vital signs: Vital Signs Temp 98.0 F 11/05/19 07:00 Pulse 80 11/05/19 07:00 Resp 18 11/05/19 07:00 BP 125/74 11/05/19 07:00 Pulse Ox 97 11/05/19 07:00 Intake & Output 11/04/19 11/05/19 11/05/19 18:59 06:59 18:59 Output Total 1200 1685 Balance -1200 -1685 Weight 66.678 kg 66.5 kg Output: Gastric Drainage 700 350 Drainage 660 Right Abdomen 660 Urine 500 675 Other: Voiding Method Urinal Urinal # Voids 4 1 1 - Constitutional General appearance: Present: cooperative, no acute distress - Gastrointestinal General gastrointestinal: Present: decreased bowel sounds, soft Localized gastrointestinal: surgical scar: diffuse (Dressings are clean and dry. Wound vac has had minimal drainage.) - Labs CBC & Chem 7: 11/05/19 06:50 11/05/19 06:50 Labs: Abnormal Lab Results - Last 24 Hours (Table) 11/04/19 11/04/19 11/04/19 Range/Units 11:39 11:39 16:26 WBC (3.8-10.6) k/uL RBC (4.30-5.90) m/uL Hgb (13.0-17.5) gm/dL Hct (39.0-53.0) % MCHC (31.0-37.0) g/dL Plt Count (150-450) k/uL Neutrophils # (1.3-7.7) k/uL Chloride 97 L (98-107) mmol/L Carbon Dioxide (22-30) mmol/L BUN 5 L (9-20) mg/dL Glucose 126 H (74-99) mg/dL POC Glucose (mg/dL) 122 H (75-99) mg/dL Alkaline Phosphatase 181 H (38-126) U/L Albumin 3.1 L 3.1 L (3.5-5.0) g/dL Triglycerides 215 H (<150) mg/dL 11/05/19 11/05/19 11/05/19 Range/Units 00:11 05:47 06:50 WBC 12.7 H (3.8-10.6) k/uL RBC 3.19 L (4.30-5.90) m/uL Hgb 8.9 L (13.0-17.5) gm/dL Hct 29.9 L (39.0-53.0) % MCHC 29.9 L (31.0-37.0) g/dL Plt Count 697 H (150-450) k/uL Neutrophils # 10.1 H (1.3-7.7) k/uL Chloride (98-107) mmol/L Carbon Dioxide (22-30) mmol/L BUN (9-20) mg/dL Glucose (74-99) mg/dL POC Glucose (mg/dL) 114 H 125 H (75-99) mg/dL Alkaline Phosphatase (38-126) U/L Albumin (3.5-5.0) g/dL Triglycerides (<150) mg/dL 11/05/19 Range/Units 06:50 WBC (3.8-10.6) k/uL RBC (4.30-5.90) m/uL Hgb (13.0-17.5) gm/dL Hct (39.0-53.0) % MCHC (31.0-37.0) g/dL Plt Count (150-450) k/uL Neutrophils # (1.3-7.7) k/uL Chloride 97 L (98-107) mmol/L Carbon Dioxide 33 H (22-30) mmol/L BUN 8 L (9-20) mg/dL Glucose 106 H (74-99) mg/dL POC Glucose (mg/dL) (75-99) mg/dL Alkaline Phosphatase 164 H (38-126) U/L Albumin 3.0 L (3.5-5.0) g/dL Triglycerides (<150) mg/dL Assessment and Plan (1) Surgical site infection Current Visit: Yes Status: Acute Code(s): T81.49XA - INFECTION FOLLOWING A PROCEDURE, OTHER SURGICAL SITE, INIT SNOMED Code(s): 31891130 (2) Small bowel fistula Current Visit: Yes Status: Acute Code(s): K63.2 - FISTULA OF INTESTINE SNOMED Code(s): 964234710 Plan: The patient's NG output continues to be fairly high. He has been taking a lot of Ice chips and popsicles. We'll try the NG tube being clamped.If he is able to tolerate that time 6 hours and will be discontinued. The AHSAN drain will be discontinued. Encourage activity and incentive spirometry. Progressing slowly.
[2019-11-05 11:59] LABS: Glucose,Whole Blood 136 mg/dL (75-99)
[2019-11-05] MEDS: FAT EMULSION 20% 250 ML IV SCH (14:00)
[2019-11-05 17:54] LABS: Glucose,Whole Blood 127 mg/dL (75-99)
[2019-11-06] MEDS: HEPARIN SODIUM,PORCINE 5,000 UNIT/ML 1 ML VIAL SQ SCH ×4 (00:24→23:03)
[2019-11-06 00:31] LABS: Glucose,Whole Blood 120 mg/dL (75-99)
[2019-11-06] MEDS: INSULIN ASPART (NovoLOG) 100 UNIT/ML VIAL SQ SCH ×4 (00:31→18:22)
[2019-11-06] MEDS: PIPERACILLIN-TAZOBACTAM 3.375 GM in SODIUM CHLORIDE 0.9% 100 ML IVPB SCH ×3 (00:32→15:20)
[2019-11-06] MEDS: DEXTROSE 5%-0.45% NACL 1,000 ML IV SCH ×3 (00:34→09:30)
[2019-11-06] MEDS: HYDROmorphone 1 MG/ML 1 ML SYRINGE IVP PRN (03:03)
[2019-11-06 05:48] LABS: Glucose,Whole Blood 119 mg/dL (75-99)
[2019-11-06 07:45] LABS: African American GFR (CKD) >90 (>60 ml/min/1.73 sqM); Anion Gap 9 mmol/L; Blood Urea Nitrogen 14 mg/dL (9-20); Calcium 8.4 mg/dL (8.4-10.2); Carbon Dioxide 28 mmol/L (22-30); Chloride 101 mmol/L (98-107); Glucose 99 mg/dL (74-99); Magnesium 2.2 mg/dL (1.6-2.3); Non-African American GFR(CKD) 80 (>60 ml/min/1.73 sqM); Phosphorus 3.4 mg/dL (2.5-4.5); Potassium 4.3 mmol/L (3.5-5.1); Sodium 138 mmol/L (137-145)
[2019-11-06] MEDS: SODIUM CHLORIDE 0.9% 1,000 ML IV SCH (08:12)
--- NOTE | 2019-11-06 08:39 | P.PN ---
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 The NG tube was discontinued. He is passing flatus. No nausea or increased heartburn. Pain is well controlled. Wound VAC was changed yesterday. Objective - Vital Signs Vital signs: Vital Signs Temp 98.4 F 11/06/19 07:00 Pulse 67 11/06/19 07:00 Resp 17 11/06/19 07:00 BP 128/79 11/06/19 07:00 Pulse Ox 96 11/06/19 07:00 Intake & Output 11/05/19 11/06/19 11/06/19 18:59 06:59 18:59 Intake Total 1260 Output Total 325 Balance 935 Weight 58.06 kg Intake: Intake, IV Titration 1020 Amount Parenteral Electrolytes 1020 20 ml In Amino Acid 4.25% -D10w 1,000 ml @ 83 mls/ hr IV .BY DURATION MICHELLE Rx #:[id number] Oral 240 Output: Urine 325 Other: Voiding Method Urinal Urinal # Voids 1 - Constitutional General appearance: Present: cooperative, no acute distress - Respiratory Respiratory: bilateral: CTA - Gastrointestinal General gastrointestinal: Present: normal bowel sounds, soft Localized gastrointestinal: surgical scar: diffuse (Wound VAC is in place draining with minimal drainage. Other dressing this clean and dry) - Labs CBC & Chem 7: 11/05/19 06:50 11/06/19 06:29 Labs: Abnormal Lab Results - Last 24 Hours (Table) 11/05/19 11/05/19 11/05/19 Range/Units 06:50 06:50 11:57 WBC 12.7 H (3.8-10.6) k/uL RBC 3.19 L (4.30-5.90) m/uL Hgb 8.9 L (13.0-17.5) gm/dL Hct 29.9 L (39.0-53.0) % MCHC 29.9 L (31.0-37.0) g/dL Plt Count 697 H (150-450) k/uL Neutrophils # 10.1 H (1.3-7.7) k/uL Chloride 97 L (98-107) mmol/L Carbon Dioxide 33 H (22-30) mmol/L BUN 8 L (9-20) mg/dL Glucose 106 H (74-99) mg/dL POC Glucose (mg/dL) 136 H (75-99) mg/dL Alkaline Phosphatase 164 H (38-126) U/L Albumin 3.0 L (3.5-5.0) g/dL 11/05/19 11/06/19 11/06/19 Range/Units 17:53 00:30 05:47 WBC (3.8-10.6) k/uL RBC (4.30-5.90) m/uL Hgb (13.0-17.5) gm/dL Hct (39.0-53.0) % MCHC (31.0-37.0) g/dL Plt Count (150-450) k/uL Neutrophils # (1.3-7.7) k/uL Chloride (98-107) mmol/L Carbon Dioxide (22-30) mmol/L BUN (9-20) mg/dL Glucose (74-99) mg/dL POC Glucose (mg/dL) 127 H 120 H 119 H (75-99) mg/dL Alkaline Phosphatase (38-126) U/L Albumin (3.5-5.0) g/dL Assessment and Plan (1) Surgical site infection Current Visit: Yes Status: Acute Code(s): T81.49XA - INFECTION FOLLOWING A PROCEDURE, OTHER SURGICAL SITE, INIT SNOMED Code(s): 75307793 (2) Small bowel fistula Current Visit: Yes Status: Acute Code(s): K63.2 - FISTULA OF INTESTINE SNOMED Code(s): 316952455 Plan: Start the patient on clear liquids. Will advance diet as tolerated. Encourage activity. Likely ready for discharge in the next 48 hours.
[2019-11-06] MEDS: 1: PARENTERAL ELECTROLYTES 20 ML, MVI, ADULT NO.4 WITH VIT K 10 ML, TRACE (CONC-1ML/DOSE IV SCH ×8 (09:16→20:05)
[2019-11-06 11:51] LABS: Glucose,Whole Blood 116 mg/dL (75-99)
[2019-11-06] MEDS: FAT EMULSION 20% 250 ML IV SCH (15:21)
[2019-11-06] MEDS: HYDROcodone/APAP 5-325MG 1 EACH TAB PO PRN (18:10)
[2019-11-06 18:22] LABS: Glucose,Whole Blood 109 mg/dL (75-99)
[2019-11-07 00:15] LABS: Glucose,Whole Blood 122 mg/dL (75-99)
[2019-11-07] MEDS: INSULIN ASPART (NovoLOG) 100 UNIT/ML VIAL SQ SCH ×3 (00:59→12:07)
[2019-11-07] MEDS: DEXTROSE 5%-0.45% NACL 1,000 ML IV SCH ×3 (01:37→20:31)
[2019-11-07] MEDS: PIPERACILLIN-TAZOBACTAM 3.375 GM in SODIUM CHLORIDE 0.9% 100 ML IVPB SCH ×3 (01:41→16:51)
[2019-11-07 05:44] LABS: Glucose,Whole Blood 92 mg/dL (75-99)
[2019-11-07 07:13] LABS: African American GFR (CKD) >90 (>60 ml/min/1.73 sqM); Anion Gap 10 mmol/L; Blood Urea Nitrogen 13 mg/dL (9-20); Calcium 8.4 mg/dL (8.4-10.2); Carbon Dioxide 23 mmol/L (22-30); Chloride 103 mmol/L (98-107); Glucose 120 mg/dL (74-99); Non-African American GFR(CKD) >90 (>60 ml/min/1.73 sqM); Phosphorus 3.3 mg/dL (2.5-4.5); Potassium 4.1 mmol/L (3.5-5.1); Sodium 136 mmol/L (137-145)
[2019-11-07] MEDS: HEPARIN SODIUM,PORCINE 5,000 UNIT/ML 1 ML VIAL SQ SCH ×2 (07:34→14:51)
[2019-11-07] MEDS: 1: PARENTERAL ELECTROLYTES 20 ML, MVI, ADULT NO.4 WITH VIT K 10 ML, TRACE (CONC-1ML/DOSE IV SCH ×8 (09:25→14:51)
[2019-11-07] MEDS: HYDROmorphone 1 MG/ML 1 ML SYRINGE IVP PRN (10:01)
[2019-11-07 11:37] LABS: Glucose,Whole Blood 104 mg/dL (75-99)
[2019-11-07] MEDS: FAT EMULSION 20% 250 ML IV SCH (12:07)
--- NOTE | 2019-11-07 12:12 | P.PN ---
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 No nausea or vomiting. Tolerating a diet. He is stooling. IV fluids have been discontinued. Objective - Vital Signs Vital signs: Vital Signs Temp 98.4 F 11/07/19 07:00 Pulse 72 11/07/19 07:00 Resp 16 11/07/19 07:00 BP 128/81 11/07/19 07:00 Pulse Ox 98 11/07/19 07:00 Intake & Output 11/06/19 11/07/19 11/07/19 18:59 06:59 18:59 Weight 58.06 kg 58.967 kg Other: Voiding Method Urinal # Voids 1 2 - Constitutional General appearance: Present: cooperative, no acute distress - Respiratory Respiratory: bilateral: CTA - Cardiovascular Rhythm: regular - Gastrointestinal General gastrointestinal: Present: normal bowel sounds, soft Localized gastrointestinal: surgical scar: diffuse (Dressing is intact clean and dry. Wound VAC has minimal drainage.) - Labs CBC & Chem 7: 11/05/19 06:50 11/07/19 06:33 Labs: Abnormal Lab Results - Last 24 Hours (Table) 11/06/19 11/07/19 11/07/19 Range/Units 18:21 00:04 06:33 Sodium 136 L (137-145) mmol/L Glucose 120 H (74-99) mg/dL POC Glucose (mg/dL) 109 H 122 H (75-99) mg/dL 11/07/19 Range/Units 11:35 Sodium (137-145) mmol/L Glucose (74-99) mg/dL POC Glucose (mg/dL) 104 H (75-99) mg/dL Assessment and Plan (1) Surgical site infection Current Visit: Yes Status: Acute Code(s): T81.49XA - INFECTION FOLLOWING A PROCEDURE, OTHER SURGICAL SITE, INIT SNOMED Code(s): 10032495 (2) Small bowel fistula Current Visit: Yes Status: Acute Code(s): K63.2 - FISTULA OF INTESTINE SNOMED Code(s): 578056339 Plan: Had a discussion with the patient regarding discharge. We will finish off his antibiotics today and discharge him tomorrow. Home health is been arranged. He'll likely need the wound VAC for 1-2 weeks. Questions were encouraged and answered. We'll keep the current wound VAC dressing on a can be removed tomorrow prior to discharge and home health can come out to his house in place t he portable unit.
[2019-11-07] MEDS: SODIUM CHLORIDE 0.9% 1,000 ML IV SCH (14:50)
[2019-11-07 16:30] LABS: Glucose,Whole Blood 99 mg/dL (75-99)
[2019-11-08] MEDS: HEPARIN SODIUM,PORCINE 5,000 UNIT/ML 1 ML VIAL SQ SCH ×2 (00:54→06:56)
[2019-11-08] MEDS: PIPERACILLIN-TAZOBACTAM 3.375 GM in SODIUM CHLORIDE 0.9% 100 ML IVPB SCH ×2 (00:54→06:54)
[2019-11-08] MEDS: DEXTROSE 5%-0.45% NACL 1,000 ML IV SCH (00:55)
[2019-11-08 02:54] VITALS: TEMP 98.3
[2019-11-08 07:22] VITALS: BP 125/82; PULSE 70; RESP 15
[2019-11-08 07:38] LABS: African American GFR (CKD) >90 (>60 ml/min/1.73 sqM); Anion Gap 11 mmol/L; Blood Urea Nitrogen 14 mg/dL (9-20); Calcium 8.5 mg/dL (8.4-10.2); Carbon Dioxide 23 mmol/L (22-30); Chloride 104 mmol/L (98-107); Glucose 85 mg/dL (74-99); Non-African American GFR(CKD) 83 (>60 ml/min/1.73 sqM); Phosphorus 3.8 mg/dL (2.5-4.5); Potassium 4.5 mmol/L (3.5-5.1); Sodium 138 mmol/L (137-145)
--- NOTE | 2019-11-08 11:11 | P.DS ---
Providers Date of admission: 10/25/19 19:41 Expected date of discharge: 11/08/19 Attending physician: Jacquelyn Pittman Primary care physician: Anson Last - Discharge Diagnosis(es) (1) Surgical site infection Current Visit: Yes Status: Acute (2) Small bowel fistula Current Visit: Yes Status: Acute Hospital Course: The patient presented with wound infection s/p repair of VIH. This was initially drained in ED. The following day he was taken to the OR for further drainage and removal of mesh. He was given IV antibiotics which were adjusted based on cultures. The patient developed drainage of enteric contents. He was subsequently taken back to the OR for an exploratory laparotomy. A small section of the small bowel was resected which was the presumed fistula. A biologic mesh was placed. He slowly progressed. The NG was able to be removed and he was started on a diet. By 11-08-2019 He was felt to be stable for discharge. He had completed a course of antibiotics and had a wound vac in place. Patient Condition at Discharge: Good Plan - Discharge Summary Discharge Rx Participant: No New Discharge Prescriptions: New HYDROcodone/APAP 5-325MG [[place] 5-325] 1 - 2 tab PO Q4H PRN #30 tab PRN Reason: Pain Discharge Medication List HYDROcodone/APAP 5-325MG [[place] 5-325] 1 - 2 tab PO Q4H PRN #30 tab 11/07/19 [Rx] Follow up Appointment(s)/Referral(s): Anson Last, [Primary Care Provider] - 1-2 days [facility], [NON-STAFF] - (Wound VAC. White foam. 125 mmHg. Change 3 times a week. Anticipate one to 2 weeks) Activity/Diet/Wound Care/Special Instructions: May shower. No driving for 1 week. [place] diet for 1 week. No lifting greater than 10 pounds. Wound VAC should be changed 3 times per week. White foam in the wound bed. Anticipated length of therapy 1-2 weeks [facility] - wound vac - please call [phone] with questions about the wound vac Discharge Disposition: HOME SELF-CARE
== END 2019-11-08 12:20 | disposition home health service (06) | DRG 907 ==
LOC: EC 19:14 → 4SSUR 19:41
PROVIDERS: ADMIT Surgery; ATTEND Surgery
PROC: 0W9F0ZZ Drainage of Abdominal Wall, Open Approach (ICD-10-PCS; principal; 2019-10-25)
PROC: 0WPF0JZ Removal of Synthetic Substitute from Abdominal Wall, Open Approach (ICD-10-PCS; 2019-10-26)
PROC: 0DNW0ZZ Release Peritoneum, Open Approach (ICD-10-PCS; 2019-10-31)
PROC: 0WUF0JZ Supplement Abdominal Wall with Synthetic Substitute, Open Approach (ICD-10-PCS; 2019-10-31)
PROC: 0DBA0ZZ Excision of Jejunum, Open Approach (ICD-10-PCS; 2019-10-31)
PROC: 0D9670Z Drainage of Stomach with Drainage Device, Via Natural or Artificial Opening (ICD-10-PCS; 2019-10-31)
DX: T85.79XA Infection and inflammatory reaction due to other internal prosthetic devices, implants and grafts, initial encounter (principal); K65.1 Peritoneal abscess; K63.2 Fistula of intestine; L02.211 Cutaneous abscess of abdominal wall; K63.0 Abscess of intestine; Z11.59 Encounter for screening for other viral diseases; Z98.890 Other specified postprocedural states; F17.210 Nicotine dependence, cigarettes, uncomplicated; K43.2 Incisional hernia without obstruction or gangrene; K66.0 Peritoneal adhesions (postprocedural) (postinfection); Z71.3 Dietary counseling and surveillance
CPT/HCPCS: 36415; 80048; 80053; 80202; 82040; 82330; 82565; 83735; 84100; 84478; 85025; 85027; 87070; 87075; 87077; 87186; 87205; 87635; 88300; 88307; 96361; 96365; 96366; 96375; 99284